=== PATIENT | female | born 1965 | race Caucasian/White ===

== ENCOUNTER 2017-08-06 20:32 | Emergency (ER) | payer SELFPAY ==
[2017-08-06 21:11] LABS: #Basophils 0.1 thou/uL (0.0-0.2); #Eosinphils 0.2 thou/uL (0.0-0.7); #Lymphocytes 2.4 thou/uL (1.20-3.40); #Monocytes 0.6 thou/uL (0.11-0.59); #Neutrophils 7.6 thou/uL (1.40-6.50); %Basophils 0.9 % (0.0-1.0); %Eosinophils 2.2 % (0.0-10.0); %Monocytes 5.7 % (0.0-10.0); Hematocrit 44.7 % (36.0-47.0); Mean Platelet Volume 7.6 fL (7.4-10.4); Red Blood Cell (RBC) Count 4.55 mill/uL (4.20-5.40)
[2017-08-06 21:30] LABS: ALT (SGPT) 11 U/L (8-55); AST (SGOT) 13 U/L (5-34); Alkaline Phosphatase 111 U/L (40-150); Anion Gap 13 mmol/L (10-20); BUN (Urea Nitrogen) 11 mg/dL (9.8-20.1); Bilirubin, Total 0.5 mg/dL (0.2-1.2); Calc. Creatinine Clearance 0 mL/min (70-130); Calcium 9.7 mg/dL (7.8-10.44); Carbon Dioxide 27 mmol/L (22-29); Chloride 106 mmol/L (98-107); Estimated GFR-MDRD 71; Globulin 3.6 g/dL (2.4-3.5); Lipase 35 U/L (8-78); Protein, Total 7.5 g/dL (6.0-8.3)
[2017-08-06 21:45] LABS: Bilirubin Negative (Negative); Blood, Urine Negative (Negative); Glucose, Urine (Dipstick) Negative (Negative); Ketone, Urine Negative (Negative); Nitrite Negative (Negative); Protein, Urine (Dipstick) Negative (Neg-Trace)
--- NOTE | 2017-08-06 23:27 | CT ---
CT ABDOMEN AND PELVIS WITHOUT CONTRAST: 08/06/17 HISTORY: Flank pain, lower back pain, cramping in the lower abdomen. FINDINGS: Absence of oral and IV contrast reduces the sensitivity of the exam particularly for evaluation of s olid organs and bowel. The lung bases are unremarkable. The patient is post cholecystectomy and appendectomy. No free air o r free fluid is seen in the abdomen or pelvis. There is a punctate calculus in the right kidney. No calculi is seen in the left kidney, either uret er, or the urinary bladder. No hydroureteronephrosis is seen on either side. The uterus is present. There is colonic diverticulosis. No pericolonic inflammatory changes are seen to suggest diverticulitis. There is no evidence of aneurysmal dilatation of the abdominal aorta. A fat containing umbilical hernia is present. There are degenerative changes in the spine. IMPRESSION: 1. Tiny nonobstructing right renal calculus. 2. Colonic diverticulosis. 3. Fat containing umbilical hernia. POS: [facility]
== END 2017-08-07 00:33 | disposition home or self-care (01) ==
LOC: ERS 20:32
DX: N20.0 Calculus of kidney (principal); J45.909 Unspecified asthma, uncomplicated; E66.9 Obesity, unspecified
CPT/HCPCS: 36415; 74176; 80053; 81003; 82150; 83690; 85025

== ENCOUNTER 2018-05-27 16:21 | Emergency (ER) | payer SELFPAY ==
[2018-05-27] MEDS ORDERED: Ketorolac Tromethamine 30 MG/ML VIAL ONE (17:38)
--- NOTE | 2018-05-27 17:50 | RAD ---
RADIOGRAPHS OF THE RIGHT KNEE FOUR VIEWS: 05/27/18 INDICATION: Right knee injury after fall. IMPRESSION: There is mild to moderate osteoarthrosis of the right knee. No acute fracture or subluxation is evide nt. Enthesopathic changes seen off the anterior patella. The degree of osteoarthrosis has progressed since the 05/16/14 radiographic exam. POS: [facility]
--- NOTE | 2018-05-27 18:26 | ULT ---
DOPPLER VENOUS ULTRASOUND OF THE RIGHT LOWER EXTREMITY: 05/27/18 INDICATION: Right knee pain. TECHNIQUE: Teague scale, color doppler and vascular duplex with spectral analysis was performed of the deep venous structures of the right lower extremity. Common femoral vein, superficial femoral vein, popliteal ve in, posterior tibial vein, proximal greater saphenous and profunda veins were assessed. FINDINGS: Normal compression, flow, and augmentation seen within the deep venous structures of the right lower extremity. IMPRESSION: No evidence of DVT to the right lower extremity. POS: [facility]
== END 2018-05-27 18:50 | disposition home or self-care (01) ==
LOC: ERS 16:21
DX: S83.91XA Sprain of unspecified site of right knee, initial encounter (principal); J45.909 Unspecified asthma, uncomplicated; X58.XXXA Exposure to other specified factors, initial encounter; Y92.832 Beach as the place of occurrence of the external cause
CPT/HCPCS: 96372; J1885

== ENCOUNTER 2018-07-22 10:36 | Outpatient (CLI) | payer OTHER, SELFPAY ==
--- NOTE | 2018-07-22 13:22 | ULT ---
PELVIC ULTRASOUND: Date: 07/22/18 HISTORY: Postmenopausal bleeding. COMPARISON: None. TECHNIQUE: Transabdominal and endovaginal imaging of the pelvis is performed. Ovaries are interrogated with Teague scale imaging. FINDINGS: Uterus is identified, without discrete myometrial mass. Uterus measures 7.9 x 4.8 x 4.4 cm. Suboptimal evaluation of the endometrium. Both ovaries have a normal echotexture. Right ovary measures 2.9 x 2.0 x 1.3 cm. Left ovary measures 1.9 x 1.5 x 2.4 cm. IMPRESSION: Suboptimal evaluation of the endometrium. Given the patient's history of postmenopausal bleeding, pel anna MRI is recommended. POS: [facility]
== END 2018-07-22 10:37 | disposition home or self-care (01) ==
LOC: BICULT 10:36
PROVIDERS: ATTEND Family Medicine
DX: N95.0 Postmenopausal bleeding (principal)
CPT/HCPCS: 76856

== ENCOUNTER 2019-01-05 20:39 | Emergency (ER) | payer SELFPAY ==
[~2019-01-05 20:39] MED LIST: ISOVUE-370 76%-LOCM 1 ML ONE
[2019-01-05 21:30] LABS: #Basophils 0.1 thou/uL (0.0-0.2); #Eosinphils 0.2 thou/uL (0.0-0.7); #Lymphocytes 2.5 thou/uL (1.20-3.40); #Monocytes 0.6 thou/uL (0.11-0.59); %Basophils 0.8 % (0.0-1.0); %Eosinophils 2.4 % (0.0-10.0); %Lymphocytes 23.9 % (21.0-51.0); %Monocytes 6.1 % (0.0-10.0); %Neutrophils 66.8 % (42.0-75.0); Hemoglobin 14.6 g/dL (12.0-16.0); Mean Corpuscular HGB CONC 32.1 g/dL (32.0-36.0); Mean Corpuscular Hemoglobin 30.9 pg (27.0-31.0); Mean Corpuscular Volume 96.4 fL (78.0-98.0); Mean Platelet Volume 8.1 fL (7.4-10.4); Platelet Count 286 thou/uL (130-400); RBC Distribution Width 12.1 % (11.5-14.5); Red Blood Cell (RBC) Count 4.73 mill/uL (4.20-5.40); White Blood Cell (WBC) Count 10.5 thou/uL (4.8-10.8)
[2019-01-05 21:39] LABS: Bilirubin Negative (Negative); Blood, Urine Large (Negative); Clarity CLOUDY (Clear); Glucose, Urine (Dipstick) Negative (Negative); Leukocyte Negative (Negative); Nitrite Negative (Negative); Protein, Urine (Dipstick) Trace mg/dL (Neg-Trace); Specific Gravity, Urine 1.024 (1.002-1.036); pH, Urine 6.5 (5.0-9.0)
[2019-01-05 21:41] LABS: Bacteria/HPF 1+ HPF (None Seen); Hyaline Casts/LPF 4-6 HYALINE CAST LPF (0-3 Hyaline); Pathc Cast-AUWi Flag 0.95 (0-2.49); RBC/HPF GREATER THAN 50-TNTC HPF (0-3)
[2019-01-05 21:48] LABS: ALT (SGPT) 12 U/L (8-55); AST (SGOT) 15 U/L (5-34); Albumin 4.1 g/dL (3.5-5.0); Alkaline Phosphatase 108 U/L (40-150); Anion Gap 14 mmol/L (10-20); BUN (Urea Nitrogen) 11 mg/dL (9.8-20.1); Bilirubin, Total 0.7 mg/dL (0.2-1.2); Calc. Creatinine Clearance 0 mL/min (70-130); Calcium 9.9 mg/dL (7.8-10.44); Carbon Dioxide 26 mmol/L (22-29); Chloride 105 mmol/L (98-107); Estimated GFR-MDRD 83; Globulin 3.5 g/dL (2.4-3.5); Glucose 142 mg/dL (70-105); Protein, Total 7.6 g/dL (6.0-8.3); Sodium 141 mmol/L (136-145)
[2019-01-05] MEDS ORDERED: Ketorolac Tromethamine 30 MG/ML VIAL ONE (22:28)
--- NOTE | 2019-01-05 23:41 | ULT ---
ULTRASOUND PELVIC TRANSVAGINAL WITH DOPPLER: 01/05/19 HISTORY: Pelvic pain. COMPARISON: Pelvic ultrasound from 07/22/18. FINDINGS: The uterus measures 9.8 x 4.9 x 4.7 cm. Endometrial thickness measures 1 cm. Right ovary measures 3.5 x 1.8 x 2.5 cm. Adequate vascular flow. No free fluid. Left ovary is not visualized. IMPRESSION: 1. Abnormally thickened endometrium in postmenopausal patient. It may reflect hyperplasia versus less likely a mass or polyp. Direct visualization and biopsy recommended if not already performed. 2. Nonvisualization of the left ovary with normal flow to the right ovary. POS: [facility]
[2019-01-06] MEDS ORDERED: Ondansetron PF 4 MG/2 ML Vial ONE (00:01)
--- NOTE | 2019-01-06 07:59 | CT ---
PRELIMINARY REPORT/[facility]/EMERGENCY AFTER HOURS PROCEDURE: EXAM: CT Abdomen and Pelvis With Contrast EXAM DATE/TIME: 01/06/2019 12:12 AM CLINICAL HISTORY: 53 years old, female; Pain; Abdominal pain; Acute; Patient HX: F53 reports to ed C/O rlq pain. PT rep orts associated nausea, MIRAMONTES, vaginal spotting for three weeks, back pain, and fever. PT reports sharp abdominal spasms, that have worsened. PT reports vaginal bleeding when standing during work, then sto ps when sitting; PT report blood has alternated between bright red and brown. PT reports she has nevjose luis r had a regular mp. PT reports it feels like "privates" are dropping. TECHNIQUE: Imaging protocol: Axial computed tomography images of the abdomen and pelvis with intravenous contras t. Coronal reformatted images were created and reviewed. COMPARISON: No relevant prior studies available. FINDINGS: Lower thorax: No acute findings. ABDOMEN: Liver: Hepatomegaly measures 18 cm. Gallbladder and bile ducts: Previous cholecystectomy. Pancreas: Normal. No ductal dilation. Spleen: Normal. No splenomegaly. Adrenals: Normal. No mass. Kidneys and ureters: Normal. No hydronephrosis. Stomach and bowel: Diverticulosis without diverticulitis. Appendix: No evidence of appendicitis. PELVIS: Bladder: Unremarkable as visualized. Reproductive: Unremarkable as visualized. ABDOMEN and PELVIS: Intraperitoneal space: Normal. No free air. No significant fluid collection. Bones/joints: There are degenerative changes involving the spine. Soft tissues: Moderate to large fat containing umbilical hernia. Vasculature: Multiple phleboliths within the pelvis. Lymph nodes: Normal. No enlarged lymph nodes. IMPRESSION: No acute abnormality. Thank you for allowing us to participate in the care of your patient. Dictated and Authenticated by: Masood Donohue MD 01/06/2019 1:02 AM Central Time ([place] & [place]) FINAL REPORT CT ABDOMEN AND PELVIS: Date: 01/06/19 HISTORY: Right lower quadrant pain/acute abdominal pain. FINDINGS: This report is in agreement with the preliminary report given by Samantha. Imaged lung bases are unremark able with no free intraperitoneal air or fluid seen. There is a fat-containing umbilical hernia measu ring up to 7.0 cm in transverse dimension. Cholecystectomy clips are present. Liver and spleen are un remarkable. There are varices noted in the left upper quadrant of uncertain etiology, most prominent in the region of the body of the spleen. This could be related to stenosis and/or occlusion of the sp lenic vein distally. Adrenal glands and kidneys demonstrate no acute findings. No evidence for bowel, inflammatory change, or bowel obstruction. Appendix is grossly unremarkable. Vascular structures of abdomen and pelvis demonstrate no acute find ings. No lymphadenopathy is noted within the abdomen or pelvis. The osseous structures demonstrate multilevel lower lumbar spine facet hypertrophic change with no wo rrisome lytic or blastic bone lesions. IMPRESSION: No acute findings are noted. Numerous incidental findings are seen, as detailed above. POS: [facility]
== END 2019-01-06 01:33 | disposition home or self-care (01) ==
LOC: ERS 20:39
DX: N93.9 Abnormal uterine and vaginal bleeding, unspecified (principal); E66.9 Obesity, unspecified; J45.909 Unspecified asthma, uncomplicated
CPT/HCPCS: 36415; 74177; 76856; 80053; 81003; 81015; 85025; 96374; 96375; J1885; J2405; Q9966

== ENCOUNTER 2019-03-17 22:22 | Emergency (ER) | payer SELFPAY ==
--- NOTE | 2019-03-17 23:08 | RAD ---
EXAM: 2 view chest: INDICATIONS: Chest pain COMPARISON: 12/11/2016 FINDINGS: Mild cardiomegaly. Mild vascular engorgement. No infiltrate. No significant change from frandy or exam. IMPRESSION: No acute finding
--- NOTE | 2019-03-17 23:13 | CT ---
CT HEAD WITHOUT CONTRAST: 03/17/19 Multiple axial tomograms obtained through the head without IV enhancement. INDICATIONS: Headache. Ventricles have normal size and position. There is no evidence of intracranial mass or hemorrhage. No evidence of infarct. IMPRESSION: No acute abnormality. POS: [facility]
[2019-03-17 23:27] LABS: #Eosinphils 0.3 thou/uL (0.0-0.7); #Lymphocytes 2.4 thou/uL (1.20-3.40); #Monocytes 0.6 thou/uL (0.11-0.59); #Neutrophils 7.7 thou/uL (1.40-6.50); %Basophils 0.4 % (0.0-1.0); %Eosinophils 2.4 % (0.0-10.0); %Lymphocytes 21.6 % (21.0-51.0); %Monocytes 5.8 % (0.0-10.0); %Neutrophils 69.8 % (42.0-75.0); Hemoglobin 13.1 g/dL (12.0-16.0); Mean Corpuscular HGB CONC 33.9 g/dL (32.0-36.0); Mean Corpuscular Hemoglobin 32.1 pg (27.0-31.0); Mean Corpuscular Volume 94.8 fL (78.0-98.0); Mean Platelet Volume 8.2 fL (7.4-10.4); Platelet Count 259 thou/uL (130-400); RBC Distribution Width 12.4 % (11.5-14.5); Red Blood Cell (RBC) Count 4.07 mill/uL (4.20-5.40)
[2019-03-17 23:38] LABS: BHCG - Serum Negative (NEGATIVE); Pregs Control Background? CLEAR/WHITE (CLR/WHITE); Pregs Control Bar Appear? YES (CONTROL BAR)
[2019-03-17 23:44] LABS: ALT (SGPT) 12 U/L (8-55); AST (SGOT) 14 U/L (5-34); Albumin 3.7 g/dL (3.5-5.0); Alkaline Phosphatase 113 U/L (40-150); Anion Gap 14 mmol/L (10-20); BUN (Urea Nitrogen) 13 mg/dL (9.8-20.1); Bilirubin, Total 0.6 mg/dL (0.2-1.2); Calc. Creatinine Clearance 0 mL/min (70-130); Calcium 9.3 mg/dL (7.8-10.44); Carbon Dioxide 26 mmol/L (22-29); Chloride 102 mmol/L (98-107); Estimated GFR-MDRD 83; Globulin 3.2 g/dL (2.4-3.5); Glucose 284 mg/dL (70-105); Potassium 3.8 mmol/L (3.5-5.1); Protein, Total 6.9 g/dL (6.0-8.3); Sodium 138 mmol/L (136-145)
[2019-03-17] MEDS ORDERED: hydrALAZINE 10 MG TAB PO SCH (23:45)
[2019-03-18 00:30] LABS: Bilirubin Negative (Negative); Blood, Urine Negative (Negative); Clarity CLEAR (Clear); Glucose, Urine (Dipstick) 250 mg/dL (Negative); Leukocyte Negative (Negative); Nitrite Negative (Negative); Protein, Urine (Dipstick) Negative (Neg-Trace); Specific Gravity, Urine 1.024 (1.002-1.036); pH, Urine 6.5 (5.0-9.0)
== END 2019-03-18 01:23 | disposition home or self-care (01) ==
LOC: ERS 22:22
DX: J20.9 Acute bronchitis, unspecified (principal); E11.65 Type 2 diabetes mellitus with hyperglycemia; E66.9 Obesity, unspecified; J45.909 Unspecified asthma, uncomplicated; R03.0 Elevated blood-pressure reading, without diagnosis of hypertension
CPT/HCPCS: 36415; 70450; 71046; 80053; 81003; 84484; 84703; 85025

== ENCOUNTER 2020-11-02 05:31 | Inpatient (IN) | payer SELFPAY ==
[2020-11-02] MEDS ORDERED: Lorazepam 2 MG/ML VIAL ONE (06:10)
[2020-11-02] MEDS ORDERED: Dexamethasone 10 MG/ML VIAL ONE (06:10)
[2020-11-02 06:40] LABS: #Lymphocytes 1.4 thou/uL (1.20-3.40); #Monocytes 0.4 thou/uL (0.11-0.59); #Neutrophils 5.5 thou/uL (1.40-6.50); %Basophils 0.6 % (0.0-1.0); %Eosinophils 0.2 % (0.0-10.0); %Lymphocytes 18.7 % (21.0-51.0); %Monocytes 5.9 % (0.0-10.0); %Neutrophils 74.7 % (42.0-75.0); Hemoglobin 12.7 g/dL (12.0-16.0); Mean Corpuscular HGB CONC 30.4 g/dL (32.0-36.0); Mean Corpuscular Volume 95.6 fL (78.0-98.0); Mean Platelet Volume 8.1 fL (7.4-10.4); Platelet Count 229 thou/uL (130-400); RBC Distribution Width 12.1 % (11.5-14.5); Red Blood Cell (RBC) Count 4.36 mill/uL (4.20-5.40); White Blood Cell (WBC) Count 7.4 thou/uL (4.8-10.8)
[2020-11-02 06:50] LABS: ALT (SGPT) 11 U/L (8-55); AST (SGOT) 19 U/L (5-34); Albumin 3.1 g/dL (3.5-5.0); Alkaline Phosphatase 67 U/L (40-110); Anion Gap 14 mmol/L (10-20); BUN (Urea Nitrogen) 8 mg/dL (9.8-20.1); Bilirubin, Total 0.4 mg/dL (0.2-1.2); Calc. Creatinine Clearance 0 mL/min (70-130); Calcium 8.2 mg/dL (7.8-10.44); Carbon Dioxide 28 mmol/L (22-29); Chloride 100 mmol/L (98-107); Globulin 3.4 g/dL (2.4-3.5); Glucose 255 mg/dL (70-105); Potassium 3.3 mmol/L (3.5-5.1); Protein, Total 6.5 g/dL (6.0-8.3); Sodium 139 mmol/L (136-145)
[2020-11-02 07:00] LABS: Bacteria/HPF None Seen HPF (None Seen); Bilirubin Negative (Negative); Blood, Urine 2+ (Negative); Clarity Clear (Clear); Glucose, Urine (Dipstick) 30 mg/dL (Negative); Ketone, Urine Negative (Negative); Leukocyte Negative Leu/uL (Negative); Nitrite Negative (Negative); Protein, Urine (Dipstick) 70 mg/dL (Neg-Trace); RBC/HPF Greater than 50 HPF (0-3); Squamous Epithelial 0-3 HPF (0-3)
[2020-11-02 07:01] LABS: Specific Gravity, Urine 1.043 (1.002-1.036)
[2020-11-02] MEDS ORDERED: Acetaminophen 650 MG Suppository PR PRN (07:49)
[2020-11-02] MEDS ORDERED: Loperamide HCl 2 MG CAP PO PRN (07:49)
--- NOTE | 2020-11-02 07:52 | RAD ---
Exam: Chest one view HISTORY:Dyspnea. COVID positive patient Comparison: 03/17/2019 FINDINGS: Cardiac silhouette:Cardiomegaly Aorta: Unremarkable Pulmonary vessels: Normal Costophrenic angles: Small bilateral effusions LUNGS: Multi lobar interstitial and alveolar opacities. Pneumothorax: None Osseous abnormalities: None IMPRESSION: 1. Possible congestive heart failure. Superimposed multi lobar COVID pneumonia cannot be excluded.
[2020-11-02] MEDS ORDERED: Potassium Chloride 20 MEQ TAB PO SCH (08:00)
[2020-11-02] MEDS ORDERED: Albuterol 200 PUFF (6.7GM INHALER) INH PRN (08:50)
[2020-11-02 08:55] VITALS: BMI 56.6
[2020-11-02] MEDS ORDERED: Dextrose 5% in Water 1,000 ML IV PRN (08:56)
[2020-11-02] MEDS ORDERED: Dextrose 50% Abboject 50 ML SYRINGE SLOW IVP PRN (08:56)
[2020-11-02] MEDS ORDERED: cefTRIAXone\\ROCEPHIN 1 GM in Sodium Chloride 0.9% 100 ML IVPB SCH ×2 (09:00→10:30)
[2020-11-02] MEDS ORDERED: REMDESIVIR (EUA) 200 MG in Sodium Chloride 0.9% 250 ML 210 ML IV SCH (09:00)
--- NOTE | 2020-11-02 09:27 | PDOC.HHP ---
Hospitalist HPI - History of Present Illness SOB History of Present Illness: Ms. Owen is a 55-year-old female with a past medical history of hypertension, obesity, type 2 diabetes mellitus, asthma who presented to the emergency room for shortness of breath. Patient reports that she was diagnosed with Covid approximately 1 week ago and her symptoms began with myalgias, cough progressing with fevers, and now shortness of breath. Patient reports that she was significantly short of breath with her O2 saturation in the 80s which prompted her to do a virtual care visit at [facility]. She was prescribed a dose of dexamethasone and advised to present to the emergency room, however she declined at that time. This morning however patient was even more short of breath and had difficulty walking around her home due to weakness and found her O2 saturation was at 70%. Patient denies chest pain, palpitations. Denies abdominal pain, but endorses nausea and diarrhea. She also reports dysuria and feels as though she might have a UTI. In emergency room initial vital signs 136/82, 79, 22, 98.6, 70% on room air. Improved to 94% on 3 L nasal cannula. WBC 7.4, H/H 12.7/41.7. BUN/CR 8/0.67. Sodium 139, potassium 3.3. Troponin 0 0.010. Chest x-ray with severe multifocal groundglass opacities consistent with COVID-19 pneumonia. UA grossly positive. Patient received dexamethasone in the emergency room and was admitted to hospitalist service for further management of her COVID-19 pneumonia. Hospitalist ROS - Review of Systems Constitutional: reports: fever, chills, sweats, weakness, malaise Eyes: denies: pain, vision change, conjunctivae inflammation, eyelid inflammation, redness, other ENT: reports: throat pain. denies: ear pain, ear discharge, nose pain, nose discharge, nose congestion, mouth pain, mouth swelling, throat swelling, other Respiratory: reports: cough, shortness of breath, SOB with excertion. denies: dry, hemoptysis, pleuritic pain, sputum, wheezing, other Cardiovascular: denies: chest pain, palpitations, orthopnea, paroxysmal noc. dyspnea, edema, light headedness, other Gastrointestinal: reports: nausea, diarrhea. denies: vomiting, abdominal pain, constipation, melena, hematochezia, other Genitourinary: reports: dysuria, hematuria. denies: frequency, incontinence, retention, other Musculoskeletal: denies: neck pain, shoulder pain, arm pain, back pain, hand pain, leg pain, foot pain, other Skin: denies: rash, lesions, maverick, bruising, other Neurological: denies: weakness, numbness, incoordination, change in speech, confusion, seizures, other - Medication Medications: Patient not currently on any home medications since she had a lapse in her insurance coverage. Patient reports that she was taking Metformin for her diabetes and a blood pressure pill which she cannot remember the name of. No known drug allergies Hospitalist History - Past Medical History Other Medical History: Past medical history seen for Obesity Type 2 diabetes mellitus Hypertension - Past Surgical History Other Surgical History: Past surgical history includes Appendectomy Cholecystectomy Tonsillectomy Tubal ligation I&D of thigh abscess - Family History Other Family History: No pertinent family history - Social History Smoking Status: Never smoker Alcohol: reports: None Drugs: reports: none Living Situation: With Family Activity level: independent ambulation - Exam General Appearance: NAD, awake alert, ill appearing Eye: PERRL, anicteric sclera ENT: normocephalic atraumatic, no oropharyngeal lesions, moist mucosa Neck: supple, symmetric, no JVD, no thyromegaly, no lymphadenopathy, no carotid bruit Heart: RRR, no murmur, no gallops, no rubs, normal peripheral pulses Respiratory - other findings: Rales throughout, faint wheezes Gastrointestinal: soft, non-tender, non-distended, normal bowel sounds, no palpable masses, no hepatomegaly, no splenomegaly, no bruit Extremities: no cyanosis, no clubbing, no edema Skin: normal turgor, no lesions, no rashes Neurological: cranial nerve grossly intact, normal sensation to touch, no weakness, no focal deficits, no new deficit Musculoskeletal: normal tone, normal strength, no muscle wasting Psychiatric: normal affect, normal behavior, A&O x 3 Hospitalist Results - Labs Result Diagrams: 11/02/20 06:16 11/02/20 06:16 Lab results: WBC 7.4 thou/uL (4.8-10.8) 11/02/20 06:16 Hgb 12.7 g/dL (12.0-16.0) 11/02/20 06:16 Hct 41.7 % (36.0-47.0) 11/02/20 06:16 MCV 95.6 fL (78.0-98.0) 11/02/20 06:16 Plt Count 229 thou/uL (130-400) 11/02/20 06:16 Neutrophils % 74.7 % (42.0-75.0) 11/02/20 06:16 ESR Westergren 85 mm/hr (Less than 30) H 11/02/20 06:16 Sodium 139 mmol/L (136-145) 11/02/20 06:16 Potassium 3.3 mmol/L (3.5-5.1) L 11/02/20 06:16 Chloride 100 mmol/L (98-107) 11/02/20 06:16 Carbon Dioxide 28 mmol/L (22-29) 11/02/20 06:16 BUN 8 mg/dL (9.8-20.1) L 11/02/20 06:16 Creatinine 0.67 mg/dL (0.6-1.1) 11/02/20 06:16 Glucose 255 mg/dL (70-105) H 11/02/20 06:16 Calcium 8.2 mg/dL (7.8-10.44) 11/02/20 06:16 Total Bilirubin 0.4 mg/dL (0.2-1.2) 11/02/20 06:16 AST 19 U/L (5-34) 11/02/20 06:16 ALT 11 U/L (8-55) 11/02/20 06:16 Alkaline Phosphatase 67 U/L (40-110) 11/02/20 06:16 Troponin I Less than 0.010 ng/mL (< 0.028) 11/02/20 06:16 C-Reactive Protein 20.46 mg/dL (= or < 0.5) H 11/02/20 06:16 Serum Total Protein 6.5 g/dL (6.0-8.3) 11/02/20 06:16 Albumin 3.1 g/dL (3.5-5.0) L 11/02/20 06:16 Urine Ketones Negative mg/dL (Negative) 11/02/20 06:30 Urine Blood 2+ (Negative) A 11/02/20 06:30 Urine Nitrite Negative (Negative) 11/02/20 06:30 Ur Leukocyte Esterase Negative Mehreen/uL (Negative) 11/02/20 06:30 Urine RBC Greater than 50 HPF (0-3) A 11/02/20 06:30 Urine WBC 7-10 HPF (0-3) A 11/02/20 06:30 Ur Squamous Epith Cells 0-3 HPF (0-3) 11/02/20 06:30 Urine Bacteria None Seen HPF (None Seen) 11/02/20 06:30 Hospitalist H&P A/P - Plan Plan: COVID-19 pneumonia 55-year-old female with past medical history of type 2 diabetes mellitus, obesity, hypertension presents with worsening shortness of breath and Covid positive status. Symptoms began approximately 1 week ago with cough fevers myalgias and progressive shortness of breath. Patient was seen previously for rachana Galav[facility], [facility] and was started on dexamethasone day prior to admission, however O2 saturations continuing to drop and patient was 70% on room air. Now saturating well at 94% on 3 L nasal cannula. White blood cell count 7.4. Troponin 0 0.010. Chest x-ray shows severe multifocal ground glass opacities consistent with COVID-19 pneumonia. Based off of patient's comorbidities, likely baseline obesity hypoventilation syndrome, uncontrolled diabetes, and significant thickened changes on chest x-ray expect patient to have a difficult course. Will obtain baseline inflammatory markers, start convalescent plasma, continue dexamethasone, and see if patient is candidate for remdesivir. Plan -Decadron, will see patient is candidate for remdesivir -Ceftriaxone, azithromycin -Supplemental oxygen -Tylenol, Robitussin -Convalescent plasma -We will obtain baseline inflammatory markers Acute hypoxic respiratory failure Patient with acute hypoxic respiratory failure secondary to moderate to severe COVID-19 pneumonia. Patient with new oxygen requirement now on 3 L of oxygen nasal cannula to maintain O2 sat. We will continue supplemental oxygen and cl osely monitor respiratory status. Treatment as above. Plan -Supplemental oxygen -Treatment as above -Closely monitor respiratory status Urinary tract infection Patient reports dysuria, foul-smelling urine, and hematuria over the past few days. UA grossly positive. Will start patient on ceftriaxone and continue to monitor. Plan IV ceftriaxone Follow urine cultures Type 2 diabetes mellitus History of type 2 diabetes mellitus. Patient reports she was formally on Metformin but stopped due to unable to tolerate diarrhea side effects, and lapse in her insurance. Patient not currently on any diabetes medication. Will obtain hemoglobin A1c, place patient on insulin sliding scale and consider restarting patient on oral agent. Plan Hemoglobin A1c Insulin sliding scale ACHS glucose checks Carb consistent diet Hypertension History of hypertension. Patient not on any hypertensive medications currently since/of the left and insurance. Will make as needed hydralazine available and restart home medications as needed. Patient normotensive at this time. DVT prophylaxisLovenox Full code Case discussed with attending physician, Dr. Britt
[2020-11-02] MEDS: Acetaminophen 325 MG TAB PO PRN ×2 (09:59→20:31)
[2020-11-02] MEDS: Dexamethasone 4 MG TAB PO SCH (09:59)
[2020-11-02] MEDS: Enoxaparin Sodium 40 MG/0.4 ML SYRINGE SC SCH ×2 (10:00→20:30)
[2020-11-02] MEDS ORDERED: cefTRIAXone\\ROCEPHIN 2 GM in Sodium Chloride 0.9% 100 ML IVPB SCH (10:19)
[2020-11-02] MEDS: Metoclopramide HCl 10 MG/2 ML VIAL IVP PRN ×2 (11:34→21:14)
[2020-11-02] MEDS: Guaifenesin DM 100-10/5 ML UDCUP PO PRN ×2 (12:49→21:14)
[2020-11-02] MEDS: HumaLOG 300 UNITS/3 ML VIAL SC PRN ×3 (13:07→20:40)
[2020-11-02] MEDS: Loperamide HCl 2 MG CAP PO PRN (20:40)
[2020-11-03] MEDS: Guaifenesin DM 100-10/5 ML UDCUP PO PRN ×3 (05:05→20:33)
[2020-11-03] MEDS: Acetaminophen 325 MG TAB PO PRN ×2 (05:06→20:50)
[2020-11-03] MEDS: HumaLOG 300 UNITS/3 ML VIAL SC PRN ×4 (05:23→20:31)
[2020-11-03] MEDS: Metoclopramide HCl 10 MG/2 ML VIAL IVP PRN (05:38)
[2020-11-03 07:16] LABS: Anion Gap 18 mmol/L (10-20); BUN (Urea Nitrogen) 12 mg/dL (9.8-20.1); Calc. Creatinine Clearance 192 mL/min (70-130); Calcium 8.3 mg/dL (7.8-10.44); Carbon Dioxide 22 mmol/L (22-29); Chloride 102 mmol/L (98-107); Glucose 277 mg/dL (70-105); Potassium 4.1 mmol/L (3.5-5.1); Sodium 138 mmol/L (136-145)
[2020-11-03] MEDS: cefTRIAXone\\ROCEPHIN 2 GM in Sodium Chloride 0.9% 100 ML IVPB SCH (08:11)
[2020-11-03] MEDS: Dexamethasone 4 MG TAB PO SCH (08:11)
[2020-11-03] MEDS: Enoxaparin Sodium 40 MG/0.4 ML SYRINGE SC SCH ×2 (08:12→20:31)
--- NOTE | 2020-11-03 08:19 | PDOC.HOSPP ---
- Subjective Encounter Date: 11/03/20 Encounter Time: 08:17 Subjective: Patient sitting up in chair with oxygen on via NC at 4L/min. SPO2 reading 99- 100%. On room air, patient titrated down to 95-96%. Patient states she gets shortness of breath with exertion, position changes or prolonged movement. - Objective Vital Signs & Weight: Vital Signs (12 hours) Temp Pulse Resp BP Pulse Ox 11/03/20 04:00 98.0 F 64 18 124/77 92 L 11/03/20 00:00 98.4 F 65 20 129/82 97 Weight Weight 290 lb I&O: 11/02/20 11/03/20 11/04/20 06:59 06:59 06:59 Intake Total 600 Balance 600 Result Diagrams: 11/03/20 11:53 11/03/20 06:30 Additional Labs: Accuchecks 11/03/20 11/02/20 11/02/20 05:15 20:18 16:07 POC Glucose 234 H 335 H 364 H 11/02/20 11:39 POC Glucose 338 H Hospitalist ROS - Review of Systems Constitutional: reports: weakness Respiratory: reports: cough, SOB with excertion, wheezing Cardiovascular: denies: chest pain, palpitations, orthopnea, paroxysmal noc. dyspnea, edema, light headedness, other Gastrointestinal: reports: nausea. denies: vomiting, abdominal pain Neurological: denies: weakness, numbness, incoordination, change in speech, confusion, seizures, other - Medication Medications: Active Medications Generic Name Dose Route Start Last Admin Trade Name Freq PRN Reason Stop Dose Admin Acetaminophen 650 mg 11/02/20 07:49 11/03/20 05:06 Acetaminophen 325 Mg Tab PO 650 mg Q4H PRN Administration Headache/Fever/Mild Pain (1-3) Dexamethasone 6 mg 11/02/20 08:00 11/03/20 08:11 Dexamethasone 4 Mg Tab PO 6 mg QAM-WM MARTHA Administration Enoxaparin Sodium 40 mg 11/02/20 09:00 11/03/20 08:12 Enoxaparin Sodium 40 Mg/0.4 Ml Syringe SC 40 mg 0900,2100 MARTHA Administration Guaifenesin/Dextromethorphan 15 ml 11/02/20 07:49 11/03/20 05:05 Guaifenesin Dm 100-10/5 Ml Udcup PO 15 ml Q4H PRN Administration Cough Ceftriaxone Sodium 2 gm/ 100 mls @ 200 mls/hr 11/03/20 09:00 11/03/20 08:11 Sodium Chloride IVPB 100 mls Q24HR MARTHA Administration Insulin Human Lispro 0 units 11/02/20 08:56 11/03/20 05:23 Humalog 300 Units/3 Ml Vial SC 3 unit .MILD SLIDING SCALE PRN Administration Mild Correctional Scale Insulin Human Lispro 0 units 11/02/20 08:56 11/02/20 20:40 Humalog 300 Units/3 Ml Vial SC 4 unit .BEDTIME SLIDING SC PRN Administration Bedtime Correctional Scale Loperamide HCl 2 mg 11/02/20 07:49 11/02/20 20:40 Loperamide Hcl 2 Mg Cap PO 2 mg PRN PRN Administration Diarrhea/Loose Stools Metoclopramide HCl 10 mg 11/02/20 10:25 11/03/20 05:38 Metoclopramide Hcl 10 Mg/2 Ml Vial IVP 10 mg Q8H PRN Administration Nausea/Vomiting - Exam General Appearance: NAD, awake alert Heart: RRR, no murmur, no gallops, no rubs, normal peripheral pulses Respiratory: CTAB, no wheezes, no rales, no ronchi, normal chest expansion, no tachypnea, normal percussion Gastrointestinal: soft, non-tender, non-distended, normal bowel sounds, no palpable masses, no hepatomegaly, no splenomegaly, no bruit Skin: normal turgor, no lesions, no rashes Neurological: cranial nerve grossly intact, normal sensation to touch, no weakness, no focal deficits, no new deficit Musculoskeletal: normal tone, normal strength, no muscle wasting Psychiatric: normal affect, normal behavior, A&O x 3 Hosp A/P - Plan old records reviewed/req COVID-19 pneumonia 55-year-old female with past medical history of type 2 diabetes mellitus, obesity, hypertension presents with worsening shortness of breath and Covid positive status. Symptoms began approximately 1 week ago with cough fevers myalgias and progressive shortness of breath. Patient was seen previously for the [facility] and was started on dexamethasone day prior to admission, however O2 saturations continuing to drop and patient was 70% on room air. Now saturating well at 94% on 3 L nasal cannula. White blood cell count 7.4. Troponin 0 0.010. Chest x-ray shows severe multifocal ground glass opacities consistent with COVID-19 pneumonia. Based off of patient's comorbidities, likely baseline obesity hypoventilation syndrome, uncontrolled diabetes, and significant thickened changes on chest x-ray expect patient to have a difficult course. Will obtain baseline inflammatory markers, start convalescent plasma, continue dexamethasone, and start remdesivir. Plan -Decadron. -Remdesivir -Ceftriaxone, azithromycin -Supplemental oxygen -Tylenol, Robitussin -Convalescent plasma -We will obtain baseline inflammatory markers Acute hypoxic respiratory failure Patient with acute hypoxic respiratory failure secondary to moderate to severe COVID-19 pneumonia. Patient with new oxygen requirement now on 3 L of oxygen nasal cannula to maintain O2 sat. We will continue supplemental oxygen and closely monitor respiratory status. Treatment as above. Plan -Supplemental oxygen -Treatment as above -Closely monitor respiratory status Urinary tract infection Patient reports dysuria, foul-smelling urine, and hematuria over the past few days. UA grossly positive. Will start patient on ceftriaxone and continue to monitor. Plan IV ceftriaxone Follow urine cultures Type 2 diabetes mellitus History of type 2 diabetes mellitus. Patient reports she was formally on Metformin but stopped due to unable to tolerate diarrhea side effects, and lapse in her insurance. Patient not currently on any diabetes medication. Will obtain hemoglobin A1c, place patient on insulin sliding scale and consider restarting patient on oral agent. Plan Hemoglobin A1c Insulin sliding scale ACHS glucose checks Carb consistent diet Hypertension History of hypertension. Patient not on any hypertensive medications currently since/of the left and insurance. Will make as needed hydralazine available and restart home medications as needed. Patient normotensive at this time. DVT prophylaxisLovenox Full code
[2020-11-03] MEDS: REMDESIVIR (EUA) 100 MG in Sodium Chloride 0.9% 250 ML 230 ML IV SCH (10:46)
[2020-11-03 12:14] LABS: #Monocytes 0.5 thou/uL (0.11-0.59); #Neutrophils 10.7 thou/uL (1.40-6.50); %Lymphocytes 8.5 % (21.0-51.0); %Monocytes 4.3 % (0.0-10.0); %Neutrophils 87.3 % (42.0-75.0); Hemoglobin 13.8 g/dL (12.0-16.0); Mean Corpuscular HGB CONC 31.5 g/dL (32.0-36.0); Mean Corpuscular Hemoglobin 30.7 pg (27.0-31.0); Mean Corpuscular Volume 97.7 fL (78.0-98.0); Mean Platelet Volume 8.2 fL (7.4-10.4); Platelet Count 261 thou/uL (130-400); RBC Distribution Width 12.1 % (11.5-14.5); Red Blood Cell (RBC) Count 4.49 mill/uL (4.20-5.40); White Blood Cell (WBC) Count 12.3 thou/uL (4.8-10.8)
[2020-11-03] MEDS: Ketorolac Tromethamine 30 MG/ML VIAL IVP PRN ×2 (16:38→23:21)
[2020-11-03] MEDS ORDERED: Zolpidem Tartrate 5 MG TAB PO PRN (18:13)
[2020-11-03] MEDS: Melatonin 3 MG TAB PO PRN (20:31)
[2020-11-04] MEDS: HumaLOG 300 UNITS/3 ML VIAL SC PRN ×4 (06:05→20:23)
[2020-11-04] MEDS: Metoclopramide HCl 10 MG/2 ML VIAL IVP PRN (06:11)
[2020-11-04] MEDS: Enoxaparin Sodium 40 MG/0.4 ML SYRINGE SC SCH ×2 (09:32→20:18)
[2020-11-04] MEDS: Dexamethasone 4 MG TAB PO SCH (09:49)
[2020-11-04] MEDS: cefTRIAXone\\ROCEPHIN 2 GM in Sodium Chloride 0.9% 100 ML IVPB SCH (09:49)
--- NOTE | 2020-11-04 10:09 | PDOC.HOSPP ---
- Subjective Encounter Date: 11/04/20 Encounter Time: 10:05 Subjective: Patient sitting up in bedside chair watching TV and eating breakfast. Patient 98% SPO2 with oxygen on via NC at 4L/min. Patient states she gets shortness of breath with exertion, position changes or prolonged movement. Patient states Ambien didn't seem to help much last night. States she feels like Reglan isn't working well, still c/o nausea, discussed starting Zofran, patient agreed. Patient has vaginal bleeding present, states she has occasional breakthrough bleeding present over the last couple years. - Objective Vital Signs & Weight: Vital Signs (12 hours) Temp Pulse Resp BP Pulse Ox 11/04/20 08:21 98.3 F 50 L 20 135/71 91 L 11/04/20 04:31 98.3 F 50 L 20 119/73 93 L 11/03/20 23:56 98.6 F 57 L 20 141/52 H 95 Weight Weight 290 lb I&O: 11/03/20 11/04/20 11/05/20 06:59 06:59 06:59 Intake Total 600 Balance 600 Result Diagrams: 11/03/20 11:53 11/03/20 06:30 Additional Labs: Accuchecks 11/04/20 11/03/20 11/03/20 04:37 20:19 16:15 POC Glucose 252 H 312 H 313 H Hospitalist ROS - Review of Systems Constitutional: reports: weakness, malaise. denies: fever, chills, sweats Eyes: denies: pain, vision change, conjunctivae inflammation ENT: denies: ear pain, ear discharge, nose pain, nose discharge, nose congestion Respiratory: reports: cough, shortness of breath, SOB with excertion. denies: pleuritic pain, sputum Cardiovascular: denies: chest pain, palpitations, orthopnea, paroxysmal noc. dy spnea Gastrointestinal: denies: nausea, vomiting, abdominal pain Musculoskeletal: reports: back pain (due to coughing). denies: neck pain, shoulder pain, arm pain Neurological: denies: weakness, numbness, incoordination All other systems reviewed; all pertinent +/- noted in HPI/Subj - Medication Medications: Active Medications Generic Name Dose Route Start Last Admin Trade Name Freq PRN Reason Stop Dose Admin Acetaminophen 650 mg 11/02/20 07:49 11/03/20 20:50 Acetaminophen 325 Mg Tab PO 650 mg Q4H PRN Administration Headache/Fever/Mild Pain (1-3) Dexamethasone 6 mg 11/02/20 08:00 11/04/20 09:49 Dexamethasone 4 Mg Tab PO 6 mg QAM-WM MARTHA Administration Enoxaparin Sodium 40 mg 11/02/20 09:00 11/04/20 09:32 Enoxaparin Sodium 40 Mg/0.4 Ml Syringe SC 40 mg 0900,2100 MARTHA Administration Guaifenesin/Dextromethorphan 15 ml 11/02/20 07:49 11/03/20 20:33 Guaifenesin Dm 100-10/5 Ml Udcup PO 15 ml Q4H PRN Administration Cough Remdesivir 100 mg/ Sodium 250 mls @ 250 mls/hr 11/03/20 10:00 11/03/20 10:46 Chloride IV 11/06/20 10:59 250 mls 1000 MARTHA Administration Ceftriaxone Sodium 2 gm/ 100 mls @ 200 mls/hr 11/03/20 09:00 11/04/20 09:49 Sodium Chloride IVPB 100 mls Q24HR MARTHA Administration Insulin Human Lispro 0 units 11/02/20 08:56 11/04/20 06:05 Humalog 300 Units/3 Ml Vial SC 4 unit .MILD SLIDING SCALE PRN Administration Mild Correctional Scale Insulin Human Lispro 0 units 11/02/20 08:56 11/03/20 20:31 Humalog 300 Units/3 Ml Vial SC 4 unit .BEDTIME SLIDING SC PRN Administration Bedtime Correctional Scale Ketorolac Tromethamine 15 mg 11/02/20 10:20 11/03/20 23:21 Ketorolac Tromethamine 30 Mg/Ml Vial IVP 11/07/20 10:21 15 mg Q6H PRN Administration Pain Loperamide HCl 2 mg 11/02/20 07:49 11/02/20 20:40 Loperamide Hcl 2 Mg Cap PO 2 mg PRN PRN Administration Diarrhea/Loose Stools Melatonin 3 mg 11/03/20 17:56 11/03/20 20:31 Melatonin 3 Mg Tab PO 3 mg HS PRN Administration Insomnia - Exam General Appearance: NAD, awake alert Eye: PERRL, anicteric sclera ENT: normocephalic atraumatic, no oropharyngeal lesions, moist mucosa Neck: supple, symmetric, no JVD, no thyromegaly, no lymphadenopathy, no carotid bruit Heart: RRR, no murmur, no gallops, no rubs, normal peripheral pulses Respiratory: CTAB, no wheezes, no rales, no ronchi, normal chest expansion, no tachypnea, normal percussion Gastrointestinal: soft, non-tender, non-distended, normal bowel sounds, no palpable masses, no hepatomegaly, no splenomegaly, no bruit Extremities: no cyanosis, no clubbing, no edema Skin: normal turgor, no lesions, no rashes Neurological: cranial nerve grossly intact, normal sensation to touch, no weakness, no focal deficits, no new deficit Musculoskeletal: normal tone, normal strength, no muscle wasting Psychiatric: normal affect, normal behavior, A&O x 3 Hosp A/P - Plan old records reviewed/req, out of bed/ambulate, DVT proph w/lovenox Patient is a 55-year-old female with a past medical history of hypertension, obesity, type 2 diabetes mellitus, asthma who presented to the emergency room for shortness of breath. Patient reports that she was diagnosed with Covid approximately 1 week ago and her symptoms began with myalgias, cough progressing with fevers, and now shortness of breath. Patient reports that she was significantly short of breath with her O2 saturation in the 80s which prompted her to do a virtual care visit at [facility]. She was prescribed a dose of dexamethasone and advised to present to the emergency room, however she declined at that time. This morning however patient was even more short of breath and had difficulty walking around her home due to weakness and found her O2 saturation was at 70%. Patient denies chest pain, palpitations. Denies abdominal pain, but endorses nausea and diarrhea. She also reports dysuria and feels as though she might have a UTI. COVID-19 pneumonia 55-year-old female with past medical history of type 2 diabetes mellitus, obesity, hypertension presents with worsening shortness of breath and Covid positive status. Symptoms began approximately 1 week ago with cough fevers myalgias and progressive shortness of breath. Patient was seen previously for the [facility] virtual clinic and was started on dexamethasone day prior to admission, however O2 saturations continuing to drop and patient was 70% on room air. Now saturating well at 94% on 3 L nasal cannula. White blood cell count 7.4. Troponin 0 0.010. Chest x-ray shows severe multifocal ground glass opacities consistent with COVID-19 pneumonia. Based off of patient's comorbidities, likely baseline obesity hypoventilation syndrome, uncontrolled diabetes, and significant thickened changes on chest x-ray expect patient to have a difficult course. Will obtain baseline inflammatory markers, start convalescent plasma, continue dexamethasone, and start remdesivir. Plan -Decadron. -Remdesivir -Ceftriaxone, azithromycin -Supplemental oxygen -Tylenol, Robitussin -Convalescent plasma -CRP 20.46, D-dimer 0.44, Ferritin 407.82 Acute hypoxic respiratory failure Patient with acute hypoxic respiratory failure secondary to moderate to severe COVID-19 pneumonia. Patient with new oxygen requirement now on 2L of oxygen nasal cannula to maintain O2 sat. We will continue supplemental oxygen and closely monitor respiratory status. Treatment as above. Plan -Supplemental oxygen -Treatment as above -Closely monitor respiratory status Urinary tract infection Patient reports dysuria, foul-smelling urine, and hematuria over the past few days. UA grossly positive. Will start patient on ceftriaxone and continue to monitor. Plan Follow urine cultures Type 2 diabetes mellitus History of type 2 diabetes mellitus. Patient reports she was formally on Metformin but stopped due to unable to tolerate diarrhea side effects, and lapse in her insurance. Patient not currently on any diabetes medication. Will obtain hemoglobin A1c, place patient on insulin sliding scale and consider restarting patient on oral agent. Plan Hemoglobin A1c Insulin sliding scale ACHS glucose checks Carb consistent diet Hypertension History of hypertension. Patient not on any hypertensive medications currently since/of the left and insurance. Will make as needed hydralazine available and restart home medications as needed. Patient normotensive at this time. DVT prophylaxisLovenox Full code
[2020-11-04] MEDS: Acetaminophen 325 MG TAB PO PRN ×2 (10:56→20:19)
[2020-11-04] MEDS: REMDESIVIR (EUA) 100 MG in Sodium Chloride 0.9% 250 ML 230 ML IV SCH (10:56)
[2020-11-04] MEDS: Ondansetron PF 4 MG/2 ML Vial IVP PRN (10:56)
[2020-11-04] MEDS ORDERED: Albuterol 200 PUFF (6.7GM INHALER) INH PRN (11:01)
[2020-11-04] MEDS ORDERED: hydrOXYzine 25 MG TAB PO SCH (14:53)
[2020-11-04] MEDS: metFORMIN 500 MG TAB PO SCH ×2 (15:48→18:58)
[2020-11-04 19:19] LABS: #Lymphocytes 0.9 thou/uL (1.20-3.40); #Monocytes 0.4 thou/uL (0.11-0.59); #Neutrophils 8.2 thou/uL (1.40-6.50); %Basophils 0.1 % (0.0-1.0); %Eosinophils 0.2 % (0.0-10.0); %Lymphocytes 9.8 % (21.0-51.0); %Monocytes 3.7 % (0.0-10.0); %Neutrophils 86.2 % (42.0-75.0); Hemoglobin 13.5 g/dL (12.0-16.0); Mean Corpuscular HGB CONC 33.7 g/dL (32.0-36.0); Mean Corpuscular Volume 98.1 fL (78.0-98.0); Mean Platelet Volume 8.3 fL (7.4-10.4); Platelet Count 212 thou/uL (130-400); RBC Distribution Width 12.3 % (11.5-14.5); Red Blood Cell (RBC) Count 4.08 mill/uL (4.20-5.40); White Blood Cell (WBC) Count 9.5 thou/uL (4.8-10.8)
[2020-11-04 19:28] LABS: Hemoglobin A1c 8.8 % (4.0-6.0)
[2020-11-04 19:39] LABS: Anion Gap 16 mmol/L (10-20); BUN (Urea Nitrogen) 15 mg/dL (9.8-20.1); Calc. Creatinine Clearance 186 mL/min (70-130); Carbon Dioxide 22 mmol/L (22-29); Chloride 102 mmol/L (98-107); Glucose 350 mg/dL (70-105); Potassium 4.5 mmol/L (3.5-5.1); Sodium 135 mmol/L (136-145)
[2020-11-04] MEDS: Melatonin 3 MG TAB PO PRN (20:18)
[2020-11-05] MEDS: Ondansetron PF 4 MG/2 ML Vial IVP PRN ×2 (00:41→09:53)
[2020-11-05] MEDS: Ketorolac Tromethamine 30 MG/ML VIAL IVP PRN ×2 (00:41→09:47)
[2020-11-05] MEDS: Guaifenesin DM 100-10/5 ML UDCUP PO PRN (00:49)
[2020-11-05] MEDS: HumaLOG 300 UNITS/3 ML VIAL SC PRN ×4 (05:50→20:44)
[2020-11-05 06:32] LABS: #Lymphocytes 1.6 thou/uL (1.20-3.40); #Monocytes 0.7 thou/uL (0.11-0.59); #Neutrophils 6.5 thou/uL (1.40-6.50); %Eosinophils 0.3 % (0.0-10.0); %Lymphocytes 18.2 % (21.0-51.0); %Monocytes 7.9 % (0.0-10.0); %Neutrophils 73.7 % (42.0-75.0); Hemoglobin 12.4 g/dL (12.0-16.0); Mean Corpuscular HGB CONC 32.3 g/dL (32.0-36.0); Mean Corpuscular Volume 96.1 fL (78.0-98.0); Mean Platelet Volume 8.1 fL (7.4-10.4); Platelet Count 233 thou/uL (130-400); RBC Distribution Width 12.2 % (11.5-14.5); Red Blood Cell (RBC) Count 4.01 mill/uL (4.20-5.40); White Blood Cell (WBC) Count 8.8 thou/uL (4.8-10.8)
[2020-11-05 06:48] LABS: Anion Gap 14 mmol/L (10-20); BUN (Urea Nitrogen) 14 mg/dL (9.8-20.1); Calc. Creatinine Clearance 221 mL/min (70-130); Calcium 7.9 mg/dL (7.8-10.44); Carbon Dioxide 23 mmol/L (22-29); Chloride 104 mmol/L (98-107); Glucose 222 mg/dL (70-105); Potassium 4.1 mmol/L (3.5-5.1); Sodium 137 mmol/L (136-145)
[2020-11-05] MEDS: Zinc Sulfate 220 MG CAP PO SCH (07:53)
[2020-11-05] MEDS: Cholecalciferol (Vitamin D3) 400 UNITS TAB PO SCH (07:53)
[2020-11-05] MEDS: metFORMIN 500 MG TAB PO SCH ×2 (07:53→17:06)
[2020-11-05] MEDS: Ascorbic Acid 500 mg Chewable Tablet PO SCH (07:53)
[2020-11-05] MEDS: Dexamethasone 4 MG TAB PO SCH (07:53)
[2020-11-05] MEDS: Enoxaparin Sodium 40 MG/0.4 ML SYRINGE SC SCH ×2 (07:54→20:44)
[2020-11-05] MEDS: REMDESIVIR (EUA) 100 MG in Sodium Chloride 0.9% 250 ML 230 ML IV SCH (10:15)
[2020-11-05] MEDS: Loperamide HCl 2 MG CAP PO PRN ×2 (12:00→21:00)
--- NOTE | 2020-11-05 13:43 | PDOC.HOSPP ---
- Subjective Encounter Date: 11/05/20 Subjective: The patient is on 4 L of oxygen. She is complaining of shortness of breath. - Objective Vital Signs & Weight: Vital Signs (12 hours) Temp Pulse Resp BP BP Pulse Ox 11/05/20 12:00 97.8 F 53 L 16 136/78 95 11/05/20 08:00 94 L 11/05/20 07:50 97.5 F L 46 L 16 113/72 94 L 11/05/20 04:08 97.5 F L 50 L 18 136/84 95 Weight Weight 290 lb I&O: 11/04/20 11/05/20 11/06/20 06:59 06:59 06:59 Intake Total 240 240 Balance 240 240 Result Diagrams: 11/05/20 05:51 11/05/20 05:51 Additional Labs: Accuchecks 11/05/20 11/05/20 11/04/20 12:10 04:03 20:03 POC Glucose 260 H 232 H 303 H 11/04/20 11/03/20 15:52 11:52 POC Glucose 315 H 277 H Hospitalist ROS - Medication Medications: Active Medications Generic Name Dose Route Start Last Admin Trade Name Freq PRN Reason Stop Dose Admin Acetaminophen 650 mg 11/02/20 07:49 11/04/20 20:19 Acetaminophen 325 Mg Tab PO 650 mg Q4H PRN Administration Headache/Fever/Mild Pain (1-3) Ascorbic Acid 1,000 mg 11/05/20 09:00 11/05/20 07:53 Ascorbic Acid 500 Mg Chewable Tablet PO 1,000 mg DAILY MARTHA Administration Cholecalciferol 400 units 11/05/20 09:00 11/05/20 07:53 Cholecalciferol (Vitamin D3) 400 Units Tab PO 400 units DAILY MARTHA Administration Dexamethasone 6 mg 11/02/20 08:00 11/05/20 07:53 Dexamethasone 4 Mg Tab PO 6 mg QAM-WM MARTHA Administration Enoxaparin Sodium 40 mg 11/02/20 09:00 11/05/20 07:54 Enoxaparin Sodium 40 Mg/0.4 Ml Syringe SC 40 mg 0900,2100 MARTHA Administration Guaifenesin/Dextromethorphan 15 ml 11/02/20 07:49 11/05/20 00:49 Guaifenesin Dm 100-10/5 Ml Udcup PO 15 ml Q4H PRN Administration Cough Remdesivir 100 mg/ Sodium 250 mls @ 250 mls/hr 11/03/20 10:00 11/05/20 10:15 Chloride IV 11/06/20 10:59 250 mls 1000 MARTHA Administration Insulin Human Lispro 0 units 11/02/20 08:56 11/04/20 20:23 Humalog 300 Units/3 Ml Vial SC 4 unit .BEDTIME SLIDING SC PRN Administration Bedtime Correctional Scale Insulin Human Lispro 0 units 11/04/20 11:00 11/05/20 12:27 Humalog 300 Units/3 Ml Vial SC 6 unit .MODERATE SLIDING SC PRN Administration Moderate Correctional Scale Ketorolac Tromethamine 15 mg 11/02/20 10:20 11/05/20 09:47 Ketorolac Tromethamine 30 Mg/Ml Vial IVP 11/07/20 10:21 15 mg Q6H PRN Administration Pain Loperamide HCl 2 mg 11/02/20 07:49 11/05/20 12:00 Loperamide Hcl 2 Mg Cap PO 2 mg PRN PRN Administration Diarrhea/Loose Stools Melatonin 3 mg 11/03/20 17:56 11/04/20 20:18 Melatonin 3 Mg Tab PO 3 mg HS PRN Administration Insomnia Metformin HCl 1,000 mg 11/04/20 17:00 11/05/20 07:53 Metformin 500 Mg Tab PO 1,000 mg BID-WM MARTHA Administration Ondansetron HCl 4 mg 11/04/20 10:03 11/05/20 09:53 Ondansetron Pf 4 Mg/2 Ml Vial IVP 4 mg Q6H PRN Administration Nausea/Vomiting Zinc Sulfate 220 mg 11/05/20 09:00 11/05/20 07:53 Zinc Sulfate 220 Mg Cap PO 220 mg DAILY MARTHA Administration - Exam General Appearance: awake alert ENT: normocephalic atraumatic Neck: supple, no JVD Heart: RRR Respiratory: normal chest expansion, no tachypnea Extremities: no cyanosis, no clubbing Hosp A/P (1) Acute respiratory failure with hypoxia Code(s): J96.01 - ACUTE RESPIRATORY FAILURE WITH HYPOXIA Status: Acute (2) Pneumonia due to COVID-19 virus Code(s): U07.1 - COVID-19; J12.82 - PNEUMONIA DUE TO CORONAVIRUS DISEASE 2019 Status: Acute (3) Morbid obesity Code(s): E66.01 - MORBID (SEVERE) OBESITY DUE TO EXCESS CALORIES Status: Acute (4) UTI (urinary tract infection) Status: Acute - Plan Continue supplemental oxygen as needed. Continue dexamethasone, enoxaparin, remdesivir, and ceftriaxone.
[2020-11-05] MEDS: cefTRIAXone\\ROCEPHIN 1 GM in Sodium Chloride 0.9% 100 ML IVPB SCH (13:48)
[2020-11-05] MEDS: Acetaminophen 325 MG TAB PO PRN (17:39)
[2020-11-05] MEDS: Melatonin 3 MG TAB PO PRN (21:00)
[2020-11-05] MEDS: Ondansetron ODT 4 MG TAB PO PRN (21:04)
[2020-11-06] MEDS: HumaLOG 300 UNITS/3 ML VIAL SC PRN ×4 (05:49→20:21)
[2020-11-06 07:08] LABS: #Lymphocytes 1.6 thou/uL (1.20-3.40); #Monocytes 0.8 thou/uL (0.11-0.59); #Neutrophils 8.3 thou/uL (1.40-6.50); %Basophils 0.2 % (0.0-1.0); %Eosinophils 0.2 % (0.0-10.0); %Lymphocytes 14.9 % (21.0-51.0); %Monocytes 7.2 % (0.0-10.0); %Neutrophils 77.5 % (42.0-75.0); Hemoglobin 13.7 g/dL (12.0-16.0); Mean Corpuscular Hemoglobin 30.8 pg (27.0-31.0); Mean Corpuscular Volume 96.5 fL (78.0-98.0); Mean Platelet Volume 7.8 fL (7.4-10.4); Platelet Count 304 thou/uL (130-400); RBC Distribution Width 12.1 % (11.5-14.5); Red Blood Cell (RBC) Count 4.44 mill/uL (4.20-5.40); White Blood Cell (WBC) Count 10.6 thou/uL (4.8-10.8)
[2020-11-06 07:25] LABS: Anion Gap 15 mmol/L (10-20); BUN (Urea Nitrogen) 13 mg/dL (9.8-20.1); Calc. Creatinine Clearance 189 mL/min (70-130); Calcium 8.2 mg/dL (7.8-10.44); Carbon Dioxide 27 mmol/L (22-29); Chloride 101 mmol/L (98-107); Glucose 192 mg/dL (70-105); Potassium 3.9 mmol/L (3.5-5.1); Sodium 139 mmol/L (136-145)
[2020-11-06] MEDS: Enoxaparin Sodium 40 MG/0.4 ML SYRINGE SC SCH ×2 (08:04→20:22)
[2020-11-06] MEDS: Zinc Sulfate 220 MG CAP PO SCH (08:04)
[2020-11-06] MEDS: Ascorbic Acid 500 mg Chewable Tablet PO SCH (08:04)
[2020-11-06] MEDS: Cholecalciferol (Vitamin D3) 400 UNITS TAB PO SCH (08:04)
[2020-11-06] MEDS: Dexamethasone 4 MG TAB PO SCH (08:04)
[2020-11-06] MEDS: metFORMIN 500 MG TAB PO SCH (08:22)
[2020-11-06] MEDS ORDERED: Sodium Chloride Nasal 15 GM TUBE EA NARE PRN (09:41)
[2020-11-06] MEDS ORDERED: traMADol HCl 50 MG TAB PO PRN (09:42)
[2020-11-06] MEDS: REMDESIVIR (EUA) 100 MG in Sodium Chloride 0.9% 250 ML 230 ML IV SCH (09:45)
--- NOTE | 2020-11-06 11:07 | PDOC.HOSPP ---
- Subjective Encounter Date: 11/06/20 Subjective: She is currently on 4 L nasal cannula. Complains of headache. - Objective Vital Signs & Weight: Vital Signs (12 hours) Temp Pulse Resp BP Pulse Ox 11/06/20 08:28 97.9 F 54 L 20 121/74 99 11/06/20 08:00 99 Weight Weight 290 lb I&O: 11/05/20 11/06/20 11/07/20 06:59 06:59 06:59 Intake Total 240 240 240 Balance 240 240 240 Result Diagrams: 11/07/20 09:43 11/07/20 09:43 Additional Labs: Accuchecks 11/06/20 11/05/20 11/05/20 05:10 20:04 16:13 POC Glucose 181 H 292 H 333 H 11/05/20 12:10 POC Glucose 260 H Hospitalist ROS - Medication Medications: Active Medications Generic Name Dose Route Start Last Admin Trade Name Freq PRN Reason Stop Dose Admin Acetaminophen 650 mg 11/02/20 07:49 11/05/20 17:39 Acetaminophen 325 Mg Tab PO 650 mg Q4H PRN Administration Headache/Fever/Mild Pain (1-3) Ascorbic Acid 1,000 mg 11/05/20 09:00 11/06/20 08:04 Ascorbic Acid 500 Mg Chewable Tablet PO 1,000 mg DAILY MARTHA Administration Cholecalciferol 400 units 11/05/20 09:00 11/06/20 08:04 Cholecalciferol (Vitamin D3) 400 Units Tab PO 400 units DAILY MARTHA Administration Dexamethasone 6 mg 11/02/20 08:00 11/06/20 08:04 Dexamethasone 4 Mg Tab PO 6 mg QAM-WM MARTHA Administration Enoxaparin Sodium 40 mg 11/02/20 09:00 11/06/20 08:04 Enoxaparin Sodium 40 Mg/0.4 Ml Syringe SC 40 mg 0900,2100 MARTHA Administration Guaifenesin/Dextromethorphan 15 ml 11/02/20 07:49 11/05/20 00:49 Guaifenesin Dm 100-10/5 Ml Udcup PO 15 ml Q4H PRN Administration Cough Ceftriaxone Sodium 1 gm/ 100 mls @ 200 mls/hr 11/05/20 14:00 11/05/20 13:48 Sodium Chloride IVPB 100 mls 1400 MARTHA Administration Insulin Human Lispro 0 units 11/02/20 08:56 11/05/20 20:44 Humalog 300 Units/3 Ml Vial SC 3 unit .BEDTIME SLIDING SC PRN Administration Bedtime Correctional Scale Insulin Human Lispro 0 units 11/04/20 11:00 11/06/20 11:00 Humalog 300 Units/3 Ml Vial SC 4 unit .MODERATE SLIDING SC PRN Administration Moderate Correctional Scale Ketorolac Tromethamine 15 mg 11/02/20 10:20 11/05/20 09:47 Ketorolac Tromethamine 30 Mg/Ml Vial IVP 11/07/20 10:21 15 mg Q6H PRN Administration Pain Loperamide HCl 2 mg 11/02/20 07:49 11/05/20 21:00 Loperamide Hcl 2 Mg Cap PO 2 mg PRN PRN Administration Diarrhea/Loose Stools Melatonin 3 mg 11/03/20 17:56 11/05/20 21:00 Melatonin 3 Mg Tab PO 3 mg HS PRN Administration Insomnia Ondansetron HCl 4 mg 11/04/20 10:03 11/05/20 09:53 Ondansetron Pf 4 Mg/2 Ml Vial IVP 4 mg Q6H PRN Administration Nausea/Vomiting Ondansetron HCl 4 mg 11/05/20 20:57 11/05/20 21:04 Ondansetron Odt 4 Mg Tab PO 4 mg Q6H PRN Administration Nausea/Vomiting Zinc Sulfate 220 mg 11/05/20 09:00 11/06/20 08:04 Zinc Sulfate 220 Mg Cap PO 220 mg DAILY MARTHA Administration - Exam General Appearance: awake alert ENT: normocephalic atraumatic Neck: supple, no JVD Heart: RRR Extremities: no cyanosis, no clubbing Hosp A/P (1) Acute respiratory failure with hypoxia Code(s): J96.01 - ACUTE RESPIRATORY FAILURE WITH HYPOXIA Status: Acute (2) Pneumonia due to COVID-19 virus Code(s): U07.1 - COVID-19; J12.82 - PNEUMONIA DUE TO CORONAVIRUS DISEASE 2019 Status: Acute (3) Morbid obesity Code(s): E66.01 - MORBID (SEVERE) OBESITY DUE TO EXCESS CALORIES Status: Acute (4) UTI (urinary tract infection) Status: Acute - Plan The patient is on 4 L of oxygen we will try to wean her 3 L. After completing her remdesivir, she will likely be able to go home on oxygen. Continue dexamethasone, enoxaparin, remdesivir, and ceftriaxone.
[2020-11-06] MEDS: cefTRIAXone\\ROCEPHIN 1 GM in Sodium Chloride 0.9% 100 ML IVPB SCH (13:54)
[2020-11-06] MEDS: Acetaminophen 325 MG TAB PO PRN (17:31)
[2020-11-06] MEDS: Ondansetron ODT 4 MG TAB PO PRN (20:23)
[2020-11-07] MEDS: HumaLOG 300 UNITS/3 ML VIAL SC PRN ×2 (05:58→11:40)
[2020-11-07] MEDS: Ascorbic Acid 500 mg Chewable Tablet PO SCH (07:50)
[2020-11-07] MEDS: Enoxaparin Sodium 40 MG/0.4 ML SYRINGE SC SCH (07:50)
[2020-11-07] MEDS: Dexamethasone 4 MG TAB PO SCH (07:50)
[2020-11-07] MEDS: Zinc Sulfate 220 MG CAP PO SCH (07:50)
[2020-11-07] MEDS: Cholecalciferol (Vitamin D3) 400 UNITS TAB PO SCH (07:50)
[2020-11-07 09:12] VITALS: BP 120/71; TEMP 98.5
[2020-11-07 09:51] LABS: Hemoglobin 13.5 g/dL (12.0-16.0); Mean Corpuscular HGB CONC 32.7 g/dL (32.0-36.0); Mean Corpuscular Volume 94.8 fL (78.0-98.0); Mean Platelet Volume 8.2 fL (7.4-10.4); Platelet Count 262 thou/uL (130-400); RBC Distribution Width 12.4 % (11.5-14.5); Red Blood Cell (RBC) Count 4.35 mill/uL (4.20-5.40); White Blood Cell (WBC) Count 15.5 thou/uL (4.8-10.8)
[2020-11-07 10:04] LABS: Anion Gap 14 mmol/L (10-20); BUN (Urea Nitrogen) 11 mg/dL (9.8-20.1); Calc. Creatinine Clearance 201 mL/min (70-130); Calcium 8.2 mg/dL (7.8-10.44); Carbon Dioxide 25 mmol/L (22-29); Chloride 104 mmol/L (98-107); Glucose 183 mg/dL (70-105); Potassium 4.3 mmol/L (3.5-5.1); Sodium 139 mmol/L (136-145)
[2020-11-07] MEDS: Acetaminophen 325 MG TAB PO PRN (10:59)
[2020-11-07 11:02] LABS: Band 2 % (5-11); Lymphocytes 14 % (21-51); MDiff Complete? YES; Monocytes 4 % (0-10); Neutrophil 78 % (42-75); Platelet Morphology Comment Appears Adequate; RBC Morphology Normal; Reactive Lymphocytes 2 % (0-10)
--- NOTE | 2020-11-07 12:19 | PDOC.DS.DS ---
Provider - Provider Date of Admission: 11/02/20 06:43 Date of Discharge: 11/07/20 Admitting Provider: Tariq Duncan MD Primary Care Physician: Naomy Damon MD Course - Hospital Course Hospital Course: The patient is a 55-year-old female with medical history of obesity, hypertension, and type 2 diabetes mellitus who was admitted to the hospital for acute respiratory failure with hypoxia secondary to COVID-19 infection. She was managed with dexamethasone, enoxaparin, supplemental oxygen, and antibiotics. Her condition improved over 72 hours and she was discharged home on oxygen. Resuscitation Status: 11/02/20 07:49 Resuscitation Status Routine Co-Sign Provider: Resuscitation Status: FULL: Full Resuscitation - Labs Lab Results: 11/07/20 09:43 11/07/20 09:43 Abnormal Lab Results - Last 48 hrs 11/06/20 06:51: Neutrophils % 77.5 H, Lymphocytes % 14.9 L, Neutrophils # 8.3 H, Monocytes # 0.8 H 11/07/20 09:43: WBC 15.5 H, Neutrophils % (Manual) 78 H, Band Neuts % (Manual) 2 L, Lymphocytes % (Manual) 14 L Microbiology - Entire Visit 11/04/20 17:09 Urine clean catch Urine Culture - Final Presumptive Thi albicans - Physical Exam Vitals: Vital Signs (12 hours) Temp Pulse Resp BP Pulse Ox 11/07/20 09:12 98.5 F 50 L 20 120/71 97 11/07/20 08:00 97 11/07/20 05:18 97.7 F 54 L 20 131/84 93 L Weight Weight 290 lb Physical Exam: The patient was seen and examined on the day of discharge. Problem - Problem (1) Acute respiratory failure with hypoxia Code(s): J96.01 - ACUTE RESPIRATORY FAILURE WITH HYPOXIA Status: Acute (2) Pneumonia due to COVID-19 virus Code(s): U07.1 - COVID-19; J12.82 - PNEUMONIA DUE TO CORONAVIRUS DISEASE 2019 Status: Acute (3) Morbid obesity Code(s): E66.01 - MORBID (SEVERE) OBESITY DUE TO EXCESS CALORIES Status: Acute (4) UTI (urinary tract infection) Status: Acute Plan - Discharge Medications Prescriptions: Doxycycline [Vibramycin] 100 mg PO Q12HR #14 cap Dexamethasone 6 mg PO DAILY #8 tablet Home Medications: Medication Instructions Recorded Confirmed Type Dexamethasone 6 mg PO DAILY #8 tablet 11/07/20 Rx Doxycycline [Vibramycin] 100 mg PO Q12HR #14 cap 11/07/20 Rx Allergies: No Known Allergies Allergy (Unverified 01/06/20 14:14) - Follow up Plan Referrals: Naomy Damon MD [Primary Care Provider] - Disposition: HOME Quality - Care Measures CORE MEASURES:: N/A
[2020-11-07] MEDS: cefTRIAXone\\ROCEPHIN 1 GM in Sodium Chloride 0.9% 100 ML IVPB SCH (13:39)
--- NOTE | 2020-11-24 18:36 | EKG ---
Test Reason : SOB Blood Pressure : / mmHG Vent. Rate : 066 BPM Atrial Rate : 340 BPM P-R Int : 000 ms QRS Dur : 148 ms QT Int : 478 ms P-R-T Axes : 018 -37 136 degrees QTc Int : 501 ms Atrial flutter with 5:1 A-V conduction Left axis deviation Left ventricular hypertrophy with QRS widening and repolarization abnormality Lateral infarct , age undetermined Abnormal ECG Confirmed by POLY SAMANIEGO ([id number]), book editor LOIDA JAMISON ([id number]) on 11/24/2020 6:36:07 PM Referred By: Confirmed By:POLY SAMANIEGO
== END 2020-11-07 14:46 | disposition home or self-care (01) | DRG 177 ==
LOC: ERS 05:31 → T4-A 06:43
PROVIDERS: ADMIT Internal Medicine; ATTEND Internal Medicine
PROC: 8E0ZXY6 Isolation (ICD-10-PCS; principal; 2019-11-02)
PROC: XW033E5 Introduction of Remdesivir Anti-infective into Peripheral Vein, Percutaneous Approach, New Technology Group 5 (ICD-10-PCS; 2020-11-03)
PROC: XW13325 Transfusion of Convalescent Plasma (Nonautologous) into Peripheral Vein, Percutaneous Approach, New Technology Group 5 (ICD-10-PCS; 2020-11-04)
DX: U07.1 COVID-19 (principal); J12.82 Pneumonia due to coronavirus disease 2019; J96.01 Acute respiratory failure with hypoxia; N39.0 Urinary tract infection, site not specified; Z68.43 Body mass index [BMI] 50.0-59.9, adult; E66.2 Morbid (severe) obesity with alveolar hypoventilation; I10 Essential (primary) hypertension; J45.909 Unspecified asthma, uncomplicated; E11.9 Type 2 diabetes mellitus without complications; Z98.51 Tubal ligation status; Z90.49 Acquired absence of other specified parts of digestive tract; Z98.890 Other specified postprocedural states
CPT/HCPCS: 36415; 36416; 36430; 51701; 71045; 80048; 80053; 81003; 81015; 82728; 83036; 83615; 84484; 85025; 85379; 85652; 86140; 86850; 86900; 86901; 87086; 93005; 96374; 96375; J0696; J1100; J1650; J1885; J2060; J2405; J2765; J3490; J7050; J8540; P9017; Q0162

== ENCOUNTER 2021-04-23 14:40 | Outpatient (CLI) | payer OTHER | END 2021-04-23 14:41 | disposition home or self-care (01) | LOC: TBSIIMAG 14:40 | PROVIDERS: ATTEND Orthopaedic Surgery | DX: M47.812 Spondylosis without myelopathy or radiculopathy, cervical region (principal) | CPT/HCPCS: 72141 ==

== ENCOUNTER 2022-06-23 19:27 | Emergency (ER) | payer SELFPAY ==
[2022-06-23] MEDS ORDERED: Albuterol Sulfate 2.5 mg/0.5 ml Neb ONE (20:59)
[2022-06-23 21:14] LABS: #Eosinphils 0.2 thou/uL (0.0-0.7); #Lymphocytes 1.8 thou/uL (1.20-3.40); #Monocytes 0.7 thou/uL (0.11-0.59); %Basophils 0.5 % (0.0-1.0); %Eosinophils 2.7 % (0.0-10.0); %Lymphocytes 27.3 % (21.0-51.0); %Monocytes 10.7 % (0.0-10.0); %Neutrophils 58.9 % (42.0-75.0); Hemoglobin 13.4 g/dL (12.0-16.0); Mean Corpuscular HGB CONC 32.9 g/dL (32.0-36.0); Mean Corpuscular Hemoglobin 31.6 pg (27.0-31.0); Mean Corpuscular Volume 96.2 fL (78.0-98.0); Mean Platelet Volume 8.4 fL (7.4-10.4); Platelet Count 192 thou/uL (130-400); RBC Distribution Width 12.4 % (11.5-14.5); Red Blood Cell (RBC) Count 4.23 mill/uL (4.20-5.40); White Blood Cell (WBC) Count 6.7 thou/uL (4.8-10.8)
[2022-06-23 21:36] LABS: ALT (SGPT) 9 U/L (8-55); AST (SGOT) 14 U/L (5-34); Albumin 3.6 g/dL (3.5-5.0); Alkaline Phosphatase 118 U/L (40-110); Anion Gap 17 mmol/L (10-20); BUN (Urea Nitrogen) 12 mg/dL (9.8-20.1); Bilirubin, Total 0.5 mg/dL (0.2-1.2); Calc. Creatinine Clearance 0 mL/min (70-130); Calcium 8.8 mg/dL (7.8-10.44); Carbon Dioxide 25 mmol/L (22-29); Chloride 101 mmol/L (98-107); Estimated GFR 88; Globulin 3.2 g/dL (2.4-3.5); Glucose 196 mg/dL (70-105); Protein, Total 6.8 g/dL (6.0-8.3); Sodium 139 mmol/L (136-145)
[2022-06-23] MEDS ORDERED: cefTRIAXone\\ROCEPHIN 1 GM VIAL ONE (21:48)
[2022-06-23] MEDS ORDERED: Lidocaine 1% MPF 2 ML VIAL ONE ×2 (21:49→21:50)
[2022-06-23] MEDS ORDERED: Lidocaine 1% PF 5 ML VIAL ONE (21:49)
[2022-06-23] MEDS ORDERED: Dexamethasone 10 MG/ML VIAL ONE (21:51)
== END 2022-06-23 22:15 | disposition home or self-care (01) ==
LOC: ERS 19:27
DX: J45.909 Unspecified asthma, uncomplicated (principal); J20.9 Acute bronchitis, unspecified
CPT/HCPCS: 36415; 71045; 80053; 83605; 84484; 85025; 87040; 94640; 96372; J0696; J1100; J7611; J7620

== ENCOUNTER 2022-07-01 06:33 | Inpatient (IN) | payer SELFPAY ==
[2022-07-01 09:02] LABS: #Eosinphils 0.1 thou/uL (0.0-0.7); #Lymphocytes 4.6 thou/uL (1.20-3.40); %Basophils 0.2 % (0.0-1.0); %Eosinophils 0.9 % (0.0-10.0); %Lymphocytes 27.3 % (21.0-51.0); %Monocytes 5.9 % (0.0-10.0); %Neutrophils 65.7 % (42.0-75.0); Hemoglobin 10.8 g/dL (12.0-16.0); Mean Corpuscular HGB CONC 32.4 g/dL (32.0-36.0); Mean Corpuscular Hemoglobin 31.3 pg (27.0-31.0); Mean Corpuscular Volume 96.7 fL (78.0-98.0); Mean Platelet Volume 8.6 fL (7.4-10.4); Platelet Count 249 thou/uL (130-400); RBC Distribution Width 12.4 % (11.5-14.5); Red Blood Cell (RBC) Count 3.46 mill/uL (4.20-5.40); White Blood Cell (WBC) Count 16.7 thou/uL (4.8-10.8)
[2022-07-01 09:23] LABS: ALT (SGPT) 15 U/L (8-55); AST (SGOT) 13 U/L (5-34); Albumin 3.4 g/dL (3.5-5.0); Alkaline Phosphatase 94 U/L (40-110); Anion Gap 14 mmol/L (10-20); BUN (Urea Nitrogen) 16 mg/dL (9.8-20.1); Bilirubin, Total 0.7 mg/dL (0.2-1.2); Calc. Creatinine Clearance 0 mL/min (70-130); Calcium 9.1 mg/dL (7.8-10.44); Carbon Dioxide 25 mmol/L (22-29); Chloride 104 mmol/L (98-107); Estimated GFR 102; Globulin 3.1 g/dL (2.4-3.5); Glucose 135 mg/dL (70-105); Potassium 4.3 mmol/L (3.5-5.1); Protein, Total 6.5 g/dL (6.0-8.3); Sodium 139 mmol/L (136-145)
[2022-07-01] MEDS ORDERED: Morphine 4 MG/ML VIAL ONE (10:21)
[2022-07-01] MEDS ORDERED: Ondansetron PF 4 MG/2 ML Vial ONE (10:21)
[2022-07-01] MEDS ORDERED: Ketorolac Tromethamine 30 MG/ML VIAL ONE (10:21)
[2022-07-01] MEDS ORDERED: Iopamidol-370 76% 500 ML 1 ML ONE (10:36)
[2022-07-01 11:51] LABS: SARS-CoV-2 NAA Rapid Test DETECTED (NotDetected)
[2022-07-01] MEDS ORDERED: Dextrose 50% Abboject 50 ML SYRINGE SLOW IVP PRN (14:16)
[2022-07-01] MEDS ORDERED: Dextrose 5% in Water 1,000 ML IV PRN (14:16)
[2022-07-01 14:52] LABS: Hemoglobin A1c 7.1 % (4.0-6.0)
[2022-07-01] MEDS ORDERED: Lidocaine 5% Patch TD SCH (15:00)
[2022-07-01 15:07] LABS: Troponin I Less than 0.010 ng/mL (< 0.028)
[2022-07-01 17:37] VITALS: BMI 49.3
[2022-07-01] MEDS ORDERED: Ipratropium Oral Inhaler INH PRN (18:07)
[2022-07-01] MEDS: Ketorolac Tromethamine 30 MG/ML VIAL IVP SCH ×2 (18:28→22:35)
[2022-07-01] MEDS: Lidocaine 5% Patch TD SCH (18:29)
[2022-07-01] MEDS: Famotidine 20 MG TAB PO SCH (21:10)
[2022-07-01] MEDS: Baclofen 10 MG TAB PO SCH (21:10)
[2022-07-01 22:30] LABS: Troponin I Less than 0.010 ng/mL (< 0.028)
[2022-07-01 23:33] LABS: Amphetamine Not Detected (NotDetected); Barbiturates Screen Not Detected (NotDetected); Benzodiazepine Screen Not Detected (NotDetected); Cocaine Metabolite Screen Not Detected (NotDetected); Methadone Not Detected (NotDetected); Methamphetamine Not Detected (NotDetected); Opiate Screen Detected (NotDetected); Oxycodone Screen Not Detected (NotDetected); Phencyclidine (PCP) Not Detected (NotDetected); THC/Cannabinoid Screen Not Detected (NotDetected); Tricyclic Screen Not Detected (NotDetected)
[2022-07-01 23:49] LABS: Bacteria/HPF None Seen HPF (None Seen); Bilirubin Negative (Negative); Blood, Urine 1+ (Negative); Clarity Clear (Clear); Glucose, Urine (Dipstick) Normal (Negative); Ketone, Urine Negative (Negative); Leukocyte 25 Leu/uL (Negative); Nitrite Negative (Negative); Protein, Urine (Dipstick) 10 mg/dL (Neg-Trace); Specific Gravity, Urine 1.036 (1.002-1.036); pH, Urine 5.5 (5.0-9.0)
[2022-07-01 23:58] LABS: Urine Culture Reflex No No
[2022-07-02] MEDS: Ondansetron ODT 4 MG TAB PO PRN (00:50)
[2022-07-02] MEDS: Ketorolac Tromethamine 30 MG/ML VIAL IVP SCH (03:11)
[2022-07-02] MEDS: Transdermal Patch Removal TOP SCH (03:12)
[2022-07-02 05:23] LABS: ALT (SGPT) 21 U/L (8-55); AST (SGOT) 21 U/L (5-34); Albumin 3.3 g/dL (3.5-5.0); Alkaline Phosphatase 96 U/L (40-110); Anion Gap 14 mmol/L (10-20); BUN (Urea Nitrogen) 21 mg/dL (9.8-20.1); Bilirubin, Total 0.8 mg/dL (0.2-1.2); Calc. Creatinine Clearance 176 mL/min (70-130); Calcium 9.1 mg/dL (7.8-10.44); Carbon Dioxide 24 mmol/L (22-29); Cardiac Risk 4.2 (Less than 4.5); Chloride 104 mmol/L (98-107); Cholesterol 157 mg/dl (< 200 Desired); Estimated GFR 101; Globulin 2.8 g/dL (2.4-3.5); Glucose 205 mg/dL (70-105); HDL Cholesterol 37 mg/dL (>60 Neg Risk); LDL Cholesterol, Calculated 77 mg/dL; Potassium 4.1 mmol/L (3.5-5.1); Protein, Total 6.1 g/dL (6.0-8.3); Sodium 138 mmol/L (136-145); Triglycerides 216 mg/dL (Less than 150)
[2022-07-02] MEDS: HumaLOG 300 UNITS/3 ML VIAL SC PRN (05:26)
[2022-07-02 07:10] LABS: Magnesium 1.8 mg/dL (1.6-2.6)
[2022-07-02 09:24] LABS: #Eosinphils 0.3 thou/uL (0.0-0.7); #Lymphocytes 2.2 thou/uL (1.20-3.40); #Monocytes 0.8 thou/uL (0.11-0.59); %Basophils 0.1 % (0.0-1.0); %Eosinophils 2.1 % (0.0-10.0); %Lymphocytes 16.4 % (21.0-51.0); %Neutrophils 75.5 % (42.0-75.0); Hemoglobin 13.4 g/dL (12.0-16.0); Mean Corpuscular HGB CONC 31.7 g/dL (32.0-36.0); Mean Corpuscular Hemoglobin 30.3 pg (27.0-31.0); Mean Corpuscular Volume 95.7 fL (78.0-98.0); Mean Platelet Volume 7.9 fL (7.4-10.4); Platelet Count 249 thou/uL (130-400); RBC Distribution Width 12.6 % (11.5-14.5); Red Blood Cell (RBC) Count 4.42 mill/uL (4.20-5.40); White Blood Cell (WBC) Count 13.2 thou/uL (4.8-10.8)
[2022-07-02] MEDS: Enoxaparin Sodium 40 MG/0.4 ML SYRINGE SC SCH (09:42)
[2022-07-02] MEDS: Baclofen 10 MG TAB PO SCH ×2 (09:42→21:48)
[2022-07-02] MEDS: Aspirin 81 mg Enteric Coated Tablet PO SCH (09:42)
[2022-07-02] MEDS: Famotidine 20 MG TAB PO SCH ×2 (09:42→21:48)
[2022-07-02] MEDS: Losartan 25 MG TAB PO SCH (09:42)
[2022-07-02] MEDS: Lidocaine 5% Patch TD SCH (18:18)
[2022-07-03] MEDS: Transdermal Patch Removal TOP SCH (03:30)
[2022-07-03 04:58] LABS: #Basophils 0.1 thou/uL (0.0-0.2); #Eosinphils 0.2 thou/uL (0.0-0.7); #Monocytes 0.7 thou/uL (0.11-0.59); #Neutrophils 7.5 thou/uL (1.40-6.50); %Basophils 0.6 % (0.0-1.0); %Eosinophils 1.8 % (0.0-10.0); %Lymphocytes 25.7 % (21.0-51.0); %Monocytes 6.2 % (0.0-10.0); %Neutrophils 65.7 % (42.0-75.0); Hemoglobin 12.7 g/dL (12.0-16.0); Mean Corpuscular HGB CONC 32.4 g/dL (32.0-36.0); Mean Corpuscular Hemoglobin 31.2 pg (27.0-31.0); Mean Corpuscular Volume 96.4 fL (78.0-98.0); Mean Platelet Volume 7.8 fL (7.4-10.4); Platelet Count 251 thou/uL (130-400); RBC Distribution Width 12.6 % (11.5-14.5); Red Blood Cell (RBC) Count 4.06 mill/uL (4.20-5.40); White Blood Cell (WBC) Count 11.5 thou/uL (4.8-10.8)
[2022-07-03 05:20] LABS: ALT (SGPT) 19 U/L (8-55); AST (SGOT) 18 U/L (5-34); Albumin 3.3 g/dL (3.5-5.0); Alkaline Phosphatase 102 U/L (40-110); Anion Gap 13 mmol/L (10-20); BUN (Urea Nitrogen) 16 mg/dL (9.8-20.1); Bilirubin, Total 0.9 mg/dL (0.2-1.2); Calc. Creatinine Clearance 182 mL/min (70-130); Calcium 9.2 mg/dL (7.8-10.44); Carbon Dioxide 25 mmol/L (22-29); Chloride 104 mmol/L (98-107); Estimated GFR 101; Globulin 2.9 g/dL (2.4-3.5); Glucose 172 mg/dL (70-105); Magnesium 1.8 mg/dL (1.6-2.6); Potassium 3.8 mmol/L (3.5-5.1); Protein, Total 6.2 g/dL (6.0-8.3); Sodium 138 mmol/L (136-145)
[2022-07-03] MEDS: Acetaminophen 325 MG TAB PO PRN (10:38)
[2022-07-03] MEDS: Baclofen 10 MG TAB PO SCH ×2 (10:38→20:57)
[2022-07-03] MEDS: Famotidine 20 MG TAB PO SCH ×2 (10:41→20:57)
[2022-07-03] MEDS: Enoxaparin Sodium 40 MG/0.4 ML SYRINGE SC SCH (10:42)
[2022-07-03] MEDS: Aspirin 81 mg Enteric Coated Tablet PO SCH (10:42)
[2022-07-03] MEDS: Losartan 25 MG TAB PO SCH (10:42)
[2022-07-03] MEDS: HumaLOG 300 UNITS/3 ML VIAL SC PRN (11:04)
[2022-07-03] MEDS ORDERED: Ibuprofen 600 MG TAB PO PRN (11:34)
[2022-07-03] MEDS ORDERED: Iopamidol-370 76% 500 ML 1 ML ONE (14:51)
[2022-07-03] MEDS ORDERED: HYDROcodone/Acetaminophen 5/325 mg Tablet PO PRN ×2 (15:23→15:25)
[2022-07-03] MEDS ORDERED: Morphine 4 MG/ML VIAL SLOW IVP PRN (15:25)
[2022-07-03] MEDS: Lidocaine 5% Patch TD SCH (15:46)
[2022-07-03] MEDS ORDERED: Naloxone HCl 0.4 mg/ml Vial IV PRN (16:27)
[2022-07-03] MEDS: Ibuprofen 600 MG TAB PO SCH ×2 (18:00→20:58)
[2022-07-03] MEDS: Gabapentin 300 MG CAP PO SCH (20:59)
[2022-07-03] MEDS: Ondansetron ODT 4 MG TAB PO PRN (21:09)
[2022-07-04 04:29] LABS: #Basophils 0.1 thou/uL (0.0-0.2); #Eosinphils 0.2 thou/uL (0.0-0.7); #Lymphocytes 2.7 thou/uL (1.20-3.40); #Monocytes 0.7 thou/uL (0.11-0.59); #Neutrophils 6.6 thou/uL (1.40-6.50); %Basophils 0.5 % (0.0-1.0); %Eosinophils 1.6 % (0.0-10.0); %Lymphocytes 26.1 % (21.0-51.0); %Monocytes 6.9 % (0.0-10.0); %Neutrophils 64.8 % (42.0-75.0); Hemoglobin 13.2 g/dL (12.0-16.0); Mean Corpuscular HGB CONC 32.8 g/dL (32.0-36.0); Mean Corpuscular Hemoglobin 31.7 pg (27.0-31.0); Mean Corpuscular Volume 96.8 fL (78.0-98.0); Mean Platelet Volume 8.1 fL (7.4-10.4); Platelet Count 237 thou/uL (130-400); RBC Distribution Width 12.5 % (11.5-14.5); Red Blood Cell (RBC) Count 4.15 mill/uL (4.20-5.40); White Blood Cell (WBC) Count 10.2 thou/uL (4.8-10.8)
[2022-07-04 04:43] LABS: ALT (SGPT) 18 U/L (8-55); AST (SGOT) 16 U/L (5-34); Albumin 3.4 g/dL (3.5-5.0); Alkaline Phosphatase 94 U/L (40-110); Anion Gap 11 mmol/L (10-20); BUN (Urea Nitrogen) 13 mg/dL (9.8-20.1); Bilirubin, Total 1.3 mg/dL (0.2-1.2); Calc. Creatinine Clearance 199 mL/min (70-130); Calcium 8.9 mg/dL (7.8-10.44); Carbon Dioxide 26 mmol/L (22-29); Chloride 105 mmol/L (98-107); Estimated GFR 104; Globulin 2.9 g/dL (2.4-3.5); Glucose 131 mg/dL (70-105); Potassium 3.9 mmol/L (3.5-5.1); Protein, Total 6.3 g/dL (6.0-8.3); Sodium 138 mmol/L (136-145)
[2022-07-04 08:08] LABS: Magnesium 1.8 mg/dL (1.6-2.6)
[2022-07-04] MEDS ORDERED: Sodium Chloride 0.9% 1,000 ML IV SCH (08:15)
[2022-07-04] MEDS: Transdermal Patch Removal TOP SCH (08:20)
[2022-07-04] MEDS: Aspirin 81 mg Enteric Coated Tablet PO SCH (08:47)
[2022-07-04] MEDS: Famotidine 20 MG TAB PO SCH ×2 (08:47→20:22)
[2022-07-04] MEDS: Baclofen 10 MG TAB PO SCH ×2 (08:47→20:22)
[2022-07-04] MEDS: Gabapentin 300 MG CAP PO SCH ×2 (08:48→20:22)
[2022-07-04] MEDS: Losartan 25 MG TAB PO SCH (08:48)
[2022-07-04] MEDS: Acetaminophen 325 MG TAB PO PRN ×2 (08:49→20:23)
[2022-07-04] MEDS ORDERED: Tamsulosin HCl 0.4 MG CAP PO SCH (09:00)
[2022-07-04] MEDS: Ibuprofen 600 MG TAB PO SCH ×3 (10:13→17:18)
[2022-07-04] MEDS: Albuterol 200 PUFF (6.7GM INHALER) INH PRN ×2 (10:55→17:48)
[2022-07-04] MEDS: HumaLOG 300 UNITS/3 ML VIAL SC PRN (17:19)
[2022-07-04] MEDS: Mometasone 200 MCG/Formoterol 5 MCG 120 PUFF INHALER INH SCH (17:47)
[2022-07-04] MEDS: Lidocaine 5% Patch TD SCH (22:05)
[2022-07-05] MEDS: Ibuprofen 600 MG TAB PO SCH ×5 (00:04→23:30)
[2022-07-05] MEDS: Transdermal Patch Removal TOP SCH ×2 (01:44→23:52)
[2022-07-05 07:32] LABS: ALT (SGPT) 14 U/L (8-55); AST (SGOT) 20 U/L (5-34); Albumin 3.2 g/dL (3.5-5.0); Alkaline Phosphatase 88 U/L (40-110); Anion Gap 13 mmol/L (10-20); BUN (Urea Nitrogen) 11 mg/dL (9.8-20.1); Bilirubin, Total 1.1 mg/dL (0.2-1.2); Calc. Creatinine Clearance 210 mL/min (70-130); Calcium 8.8 mg/dL (7.8-10.44); Carbon Dioxide 25 mmol/L (22-29); Chloride 105 mmol/L (98-107); Estimated GFR 105; Globulin 3.1 g/dL (2.4-3.5); Glucose 139 mg/dL (70-105); Magnesium 1.9 mg/dL (1.6-2.6); Potassium 4.6 mmol/L (3.5-5.1); Protein, Total 6.3 g/dL (6.0-8.3); Sodium 138 mmol/L (136-145)
[2022-07-05] MEDS: Aspirin 81 mg Enteric Coated Tablet PO SCH (09:05)
[2022-07-05] MEDS: Baclofen 10 MG TAB PO SCH ×2 (09:05→20:00)
[2022-07-05] MEDS: Famotidine 20 MG TAB PO SCH ×2 (09:05→20:00)
[2022-07-05] MEDS: Gabapentin 300 MG CAP PO SCH ×2 (09:05→20:00)
[2022-07-05] MEDS: Losartan 25 MG TAB PO SCH (09:06)
[2022-07-05] MEDS: Mometasone 200 MCG/Formoterol 5 MCG 120 PUFF INHALER INH SCH ×2 (09:07→19:45)
[2022-07-05 10:29] LABS: Band 3 % (5-11); Lymphocytes 17 % (21-51); MDiff Complete? YES; Mean Corpuscular Volume 96.8 fL (78.0-98.0); Mean Platelet Volume 8.5 fL (7.4-10.4); Monocytes 1 % (0-10); Neutrophil 79 % (42-75); Platelet Count 214 thou/uL (130-400); Platelet Morphology Comment Appears Adequate; RBC Distribution Width 12.5 % (11.5-14.5); RBC Morphology Normal; Red Blood Cell (RBC) Count 4.07 mill/uL (4.20-5.40); White Blood Cell (WBC) Count 8.7 thou/uL (4.8-10.8)
[2022-07-05] MEDS ORDERED: ALPRAZolam 0.25 MG TAB PO PRN (12:10)
[2022-07-05] MEDS ORDERED: predniSONE 20 MG TAB PO SCH (12:15)
[2022-07-05] MEDS: Lidocaine 5% Patch TD SCH (16:52)
[2022-07-05] MEDS: Acetaminophen 325 MG TAB PO PRN (17:05)
[2022-07-05] MEDS: HumaLOG 300 UNITS/3 ML VIAL SC PRN (17:47)
[2022-07-06] MEDS: Ibuprofen 600 MG TAB PO SCH ×4 (03:42→23:47)
[2022-07-06 06:46] LABS: #Eosinphils 0.1 thou/uL (0.0-0.7); #Lymphocytes 2.7 thou/uL (1.20-3.40); #Monocytes 0.8 thou/uL (0.11-0.59); #Neutrophils 7.9 thou/uL (1.40-6.50); %Basophils 0.4 % (0.0-1.0); %Eosinophils 0.8 % (0.0-10.0); %Lymphocytes 23.2 % (21.0-51.0); %Monocytes 6.7 % (0.0-10.0); %Neutrophils 68.9 % (42.0-75.0); Hemoglobin 13.3 g/dL (12.0-16.0); Mean Corpuscular HGB CONC 32.2 g/dL (32.0-36.0); Mean Corpuscular Hemoglobin 31.4 pg (27.0-31.0); Mean Corpuscular Volume 97.6 fL (78.0-98.0); Mean Platelet Volume 8.3 fL (7.4-10.4); Platelet Count 230 thou/uL (130-400); RBC Distribution Width 12.5 % (11.5-14.5); Red Blood Cell (RBC) Count 4.23 mill/uL (4.20-5.40); White Blood Cell (WBC) Count 11.4 thou/uL (4.8-10.8)
[2022-07-06 07:07] LABS: ALT (SGPT) 15 U/L (8-55); AST (SGOT) 15 U/L (5-34); Albumin 3.4 g/dL (3.5-5.0); Alkaline Phosphatase 89 U/L (40-110); Anion Gap 14 mmol/L (10-20); BUN (Urea Nitrogen) 10 mg/dL (9.8-20.1); Calc. Creatinine Clearance 210 mL/min (70-130); Carbon Dioxide 24 mmol/L (22-29); Chloride 106 mmol/L (98-107); Estimated GFR 105; Glucose 125 mg/dL (70-105); Magnesium 1.9 mg/dL (1.6-2.6); Potassium 3.8 mmol/L (3.5-5.1); Protein, Total 6.4 g/dL (6.0-8.3); Sodium 140 mmol/L (136-145)
[2022-07-06] MEDS: Aspirin 81 mg Enteric Coated Tablet PO SCH (08:50)
[2022-07-06] MEDS: Mometasone 200 MCG/Formoterol 5 MCG 120 PUFF INHALER INH SCH ×2 (08:51→21:42)
[2022-07-06] MEDS: Baclofen 10 MG TAB PO SCH ×2 (08:51→20:06)
[2022-07-06] MEDS: Losartan 25 MG TAB PO SCH (08:51)
[2022-07-06] MEDS: Famotidine 20 MG TAB PO SCH ×2 (08:51→20:05)
[2022-07-06] MEDS: Gabapentin 300 MG CAP PO SCH ×2 (08:51→20:05)
[2022-07-06] MEDS: predniSONE 20 MG TAB PO SCH (08:51)
[2022-07-06] MEDS ORDERED: Montelukast Sodium 10 mg Tablet PO SCH (10:15)
[2022-07-06] MEDS: Lidocaine 5% Patch TD SCH (15:43)
[2022-07-06] MEDS: HumaLOG 300 UNITS/3 ML VIAL SC PRN (18:13)
[2022-07-06] MEDS: Enoxaparin Sodium 40 MG/0.4 ML SYRINGE SC SCH (20:04)
[2022-07-06] MEDS: Montelukast Sodium 10 mg Tablet PO SCH (20:06)
[2022-07-07] MEDS: Transdermal Patch Removal TOP SCH (02:56)
[2022-07-07] MEDS: Ibuprofen 600 MG TAB PO SCH (05:57)
[2022-07-07 06:30] LABS: #Eosinphils 0.2 thou/uL (0.0-0.7); #Lymphocytes 3.2 thou/uL (1.20-3.40); #Monocytes 0.9 thou/uL (0.11-0.59); #Neutrophils 8.8 thou/uL (1.40-6.50); %Basophils 0.2 % (0.0-1.0); %Eosinophils 1.2 % (0.0-10.0); %Lymphocytes 24.7 % (21.0-51.0); %Monocytes 6.7 % (0.0-10.0); %Neutrophils 67.2 % (42.0-75.0); Hemoglobin 13.1 g/dL (12.0-16.0); Mean Corpuscular Hemoglobin 31.2 pg (27.0-31.0); Mean Corpuscular Volume 97.5 fL (78.0-98.0); Mean Platelet Volume 8.5 fL (7.4-10.4); Platelet Count 229 thou/uL (130-400); RBC Distribution Width 12.6 % (11.5-14.5); White Blood Cell (WBC) Count 13.1 thou/uL (4.8-10.8)
[2022-07-07] MEDS: Mometasone 200 MCG/Formoterol 5 MCG 120 PUFF INHALER INH SCH ×2 (06:45→19:30)
[2022-07-07 06:47] LABS: ALT (SGPT) 15 U/L (8-55); AST (SGOT) 13 U/L (5-34); Albumin 3.5 g/dL (3.5-5.0); Alkaline Phosphatase 85 U/L (40-110); Anion Gap 16 mmol/L (10-20); BUN (Urea Nitrogen) 11 mg/dL (9.8-20.1); Bilirubin, Total 1.3 mg/dL (0.2-1.2); Calc. Creatinine Clearance 187 mL/min (70-130); Carbon Dioxide 21 mmol/L (22-29); Chloride 106 mmol/L (98-107); Estimated GFR 102; Globulin 2.8 g/dL (2.4-3.5); Glucose 124 mg/dL (70-105); Magnesium 1.8 mg/dL (1.6-2.6); Potassium 3.6 mmol/L (3.5-5.1); Protein, Total 6.3 g/dL (6.0-8.3); Sodium 139 mmol/L (136-145)
[2022-07-07] MEDS: Aspirin 81 mg Enteric Coated Tablet PO SCH (08:46)
[2022-07-07] MEDS: Famotidine 20 MG TAB PO SCH ×2 (08:46→21:03)
[2022-07-07] MEDS: Gabapentin 300 MG CAP PO SCH ×2 (08:46→21:04)
[2022-07-07] MEDS: predniSONE 20 MG TAB PO SCH (08:46)
[2022-07-07] MEDS: Losartan 25 MG TAB PO SCH (08:47)
[2022-07-07] MEDS: Baclofen 10 MG TAB PO SCH ×2 (08:47→21:03)
[2022-07-07] MEDS ORDERED: Ibuprofen 600 MG TAB PO SCH (08:57)
[2022-07-07] MEDS: Ibuprofen 200 MG TAB PO SCH ×2 (14:21→18:10)
[2022-07-07] MEDS: Lidocaine 5% Patch TD SCH (18:10)
[2022-07-07] MEDS: Montelukast Sodium 10 mg Tablet PO SCH (21:03)
[2022-07-07] MEDS: Enoxaparin Sodium 40 MG/0.4 ML SYRINGE SC SCH (21:03)
[2022-07-08] MEDS: Ibuprofen 200 MG TAB PO SCH ×4 (00:30→17:27)
[2022-07-08] MEDS: Transdermal Patch Removal TOP SCH (05:23)
[2022-07-08] MEDS: Mometasone 200 MCG/Formoterol 5 MCG 120 PUFF INHALER INH SCH ×2 (05:23→17:29)
[2022-07-08 07:02] LABS: #Eosinphils 0.1 thou/uL (0.0-0.7); #Lymphocytes 3.1 thou/uL (1.20-3.40); #Monocytes 0.7 thou/uL (0.11-0.59); #Neutrophils 7.5 thou/uL (1.40-6.50); %Basophils 0.3 % (0.0-1.0); %Eosinophils 0.6 % (0.0-10.0); %Lymphocytes 27.4 % (21.0-51.0); %Monocytes 6.4 % (0.0-10.0); %Neutrophils 65.2 % (42.0-75.0); Hemoglobin 13.6 g/dL (12.0-16.0); Mean Corpuscular HGB CONC 31.3 g/dL (32.0-36.0); Mean Corpuscular Hemoglobin 30.4 pg (27.0-31.0); Mean Platelet Volume 8.8 fL (7.4-10.4); Platelet Count 207 thou/uL (130-400); RBC Distribution Width 12.7 % (11.5-14.5); Red Blood Cell (RBC) Count 4.48 mill/uL (4.20-5.40); White Blood Cell (WBC) Count 11.4 thou/uL (4.8-10.8)
[2022-07-08 07:50] LABS: ALT (SGPT) 13 U/L (8-55); AST (SGOT) 11 U/L (5-34); Albumin 3.5 g/dL (3.5-5.0); Alkaline Phosphatase 85 U/L (40-110); Anion Gap 12 mmol/L (10-20); BUN (Urea Nitrogen) 12 mg/dL (9.8-20.1); Calc. Creatinine Clearance 182 mL/min (70-130); Calcium 8.9 mg/dL (7.8-10.44); Carbon Dioxide 27 mmol/L (22-29); Chloride 105 mmol/L (98-107); Estimated GFR 101; Globulin 3.1 g/dL (2.4-3.5); Glucose 129 mg/dL (70-105); Magnesium 1.9 mg/dL (1.6-2.6); Potassium 3.5 mmol/L (3.5-5.1); Protein, Total 6.6 g/dL (6.0-8.3); Sodium 140 mmol/L (136-145)
[2022-07-08] MEDS: Losartan 25 MG TAB PO SCH (09:08)
[2022-07-08] MEDS: Aspirin 81 mg Enteric Coated Tablet PO SCH (09:08)
[2022-07-08] MEDS: predniSONE 20 MG TAB PO SCH (09:08)
[2022-07-08] MEDS: Gabapentin 300 MG CAP PO SCH ×2 (09:09→20:02)
[2022-07-08] MEDS: Baclofen 10 MG TAB PO SCH ×2 (09:09→20:03)
[2022-07-08] MEDS: Famotidine 20 MG TAB PO SCH ×2 (09:10→20:02)
[2022-07-08] MEDS: Lidocaine 5% Patch TD SCH (15:37)
[2022-07-08] MEDS: HumaLOG 300 UNITS/3 ML VIAL SC PRN ×2 (17:28→20:01)
[2022-07-08] MEDS: Montelukast Sodium 10 mg Tablet PO SCH (20:02)
[2022-07-08] MEDS: Docusate 100 MG CAP PO SCH (20:03)
[2022-07-08] MEDS: Enoxaparin Sodium 40 MG/0.4 ML SYRINGE SC SCH (20:04)
[2022-07-09] MEDS ORDERED: Cepastat Lozenges 1 LOZ PO PRN (00:01)
[2022-07-09] MEDS: Ibuprofen 200 MG TAB PO SCH ×4 (00:30→18:14)
[2022-07-09] MEDS: Transdermal Patch Removal TOP SCH (03:00)
[2022-07-09] MEDS: Mometasone 200 MCG/Formoterol 5 MCG 120 PUFF INHALER INH SCH ×2 (05:16→18:20)
[2022-07-09 07:32] LABS: Magnesium 1.8 mg/dL (1.6-2.6)
[2022-07-09] MEDS: Baclofen 10 MG TAB PO SCH (08:37)
[2022-07-09] MEDS: predniSONE 20 MG TAB PO SCH (08:37)
[2022-07-09] MEDS: Losartan 25 MG TAB PO SCH (08:38)
[2022-07-09] MEDS: Gabapentin 300 MG CAP PO SCH (08:38)
[2022-07-09] MEDS: Docusate 100 MG CAP PO SCH (08:38)
[2022-07-09] MEDS: Famotidine 20 MG TAB PO SCH (08:39)
[2022-07-09] MEDS: Aspirin 81 mg Enteric Coated Tablet PO SCH (08:40)
[2022-07-09] MEDS: HumaLOG 300 UNITS/3 ML VIAL SC PRN ×2 (13:24→16:43)
[2022-07-09] MEDS: Acetaminophen 325 MG TAB PO PRN (13:30)
[2022-07-09] MEDS: Lidocaine 5% Patch TD SCH (16:45)
[2022-07-09 17:40] VITALS: BP 123/78; TEMP 98.7
== END 2022-07-09 18:24 | disposition home or self-care (01) | DRG 178 ==
LOC: SUATTDRO 06:33 → ERS 06:33 → 2NO 12:41 → OBSVTOIN 07-03 09:32 → T4-A 07-04 21:47
PROVIDERS: ADMIT Family Medicine; ATTEND Internal Medicine
PROC: 8E0ZXY6 Isolation (ICD-10-PCS; principal; 2022-07-03)
DX: U07.1 COVID-19 (principal); Z68.42 Body mass index [BMI] 45.0-49.9, adult; I10 Essential (primary) hypertension; E78.5 Hyperlipidemia, unspecified; E11.9 Type 2 diabetes mellitus without complications; K21.9 Gastro-esophageal reflux disease without esophagitis; D64.9 Anemia, unspecified; K46.9 Unspecified abdominal hernia without obstruction or gangrene; R53.81 Other malaise; E66.01 Morbid (severe) obesity due to excess calories; I44.7 Left bundle-branch block, unspecified; N20.0 Calculus of kidney; R19.7 Diarrhea, unspecified; J44.9 Chronic obstructive pulmonary disease, unspecified; Z87.01 Personal history of pneumonia (recurrent); Z90.49 Acquired absence of other specified parts of digestive tract; Z98.51 Tubal ligation status; Z79.899 Other long term (current) drug therapy; Z79.52 Long term (current) use of systemic steroids; Z79.82 Long term (current) use of aspirin
CPT/HCPCS: 36415; 36416; 71275; 72128; 74177; 74230; 76705; 80053; 80061; 80306; 81001; 83036; 83735; 83880; 84484; 85025; 85379; 86140; 86850; 86900; 86901; 93005; 93010; 93306; 96372; 96374; 96375; 96376; G0378; J1650; J1815; J1885; J2270; J2405; J7050; J7512; Q0162; Q9967; U0003; U0005

== ENCOUNTER 2022-10-11 19:02 | Emergency (ER) | payer BC, SELFPAY ==
[2022-10-11] MEDS ORDERED: Ibuprofen 800 MG TAB ONE (19:23)
[2022-10-11] MEDS ORDERED: HYDROcodone/Acetaminophen 5/325 mg Tablet ONE (20:33)
== END 2022-10-11 20:34 | disposition home or self-care (01) ==
LOC: ERS 19:02
DX: S52.612A Displaced fracture of left ulna styloid process, initial encounter for closed fracture (principal); S80.01XA Contusion of right knee, initial encounter; W18.30XA Fall on same level, unspecified, initial encounter
CPT/HCPCS: 25650

== ENCOUNTER 2022-11-26 14:26 | Outpatient (CLI) | payer BC | END 2022-11-26 14:27 | disposition home or self-care (01) | LOC: TBSIIMAG 14:26 | PROVIDERS: ATTEND Orthopaedic Surgery Hand Surgery | DX: S63.592A Other specified sprain of left wrist, initial encounter (principal); M77.12 Lateral epicondylitis, left elbow; M67.922 Unspecified disorder of synovium and tendon, left upper arm; S52.592A Other fractures of lower end of left radius, initial encounter for closed fracture; S52.612A Displaced fracture of left ulna styloid process, initial encounter for closed fracture ==

== ENCOUNTER 2023-01-09 14:13 | Outpatient (CLI) | payer BC ==
[2023-01-09 14:55] LABS: #Basophils 0.1 10x3/uL (0.0-0.2); #Eosinphils 0.1 10x3/uL (0.0-0.5); #Monocytes 0.8 10x3/uL (0.0-1.1); #Neutrophils 8.4 10x3/uL (1.5-8.4); %Basophils 0.6 % (0.0-2.0); %Eosinophils 1.1 % (0.0-6.0); %Lymphocytes 23.4 % (18.0-47.0); %Monocytes 6.6 % (0.0-10.0); %Neutrophils 67.4 % (40.0-75.0); Hemoglobin 13.6 g/dL (12.0-15.5); Mean Corpuscular HGB CONC 31.5 g/dL (32.0-36.0); Mean Corpuscular Hemoglobin 30.3 pg (27.0-33.0); Mean Corpuscular Volume 96.2 fl (81.6-98.3); Mean Platelet Volume 10.7 fl (7.4-10.4); Platelet Count 277 10x3/uL (150-450); RBC Distribution Width 12.8 % (11.5-14.5); Red Blood Cell (RBC) Count 4.49 10x6/uL (3.90-5.03); White Blood Cell (WBC) Count 12.4 10x3/uL (3.5-10.5)
[2023-01-09 15:11] LABS: Anion Gap 17 mmol/L (10-20); BUN (Urea Nitrogen) 17 mg/dL (9.8-20.1); Calc. Creatinine Clearance 0 mL/min (70-130); Carbon Dioxide 23 mmol/L (22-29); Chloride 105 mmol/L (98-107); Estimated GFR 102; Glucose 175 mg/dL (70-105); Potassium 4.5 mmol/L (3.5-5.1); Sodium 140 mmol/L (136-145)
== END 2023-01-09 14:14 | disposition home or self-care (01) ==
LOC: LABBT 14:13
PROVIDERS: ATTEND Orthopaedic Surgery Hand Surgery
DX: Z01.812 Encounter for preprocedural laboratory examination (principal); S62.102A Fracture of unspecified carpal bone, left wrist, initial encounter for closed fracture
CPT/HCPCS: 80048; 85025

== ENCOUNTER 2023-02-03 09:04 | Day surgery (SDC) | payer BC, OTHER ==
[2023-01-12 11:48] VITALS: BMI 53.6
[2023-02-03] MEDS ORDERED: Neomycin-Polymyxin 1 ML AMP ONE (10:11)
[2023-02-03] MEDS ORDERED: Bupivacaine PF 0.5% 30 ML VIAL ONE (10:11)
[2023-02-03] MEDS ORDERED: Bacitracin Zinc Ointment 30 gm TUBE ONE (10:11)
[2023-02-03] MEDS ORDERED: fentaNYL 50 mcg/mL 1 mL Vial ONE ×2 (10:12→11:35)
[2023-02-03] MEDS ORDERED: Ropivacaine 0.5% HCl/PF (150 MG/30 ML VIAL) ONE (10:12)
[2023-02-03] MEDS ORDERED: Midazolam HCl 2 mg/2 ml Vial ONE (10:12)
[2023-02-03] MEDS ORDERED: CEFAZOLIN 2 GM VIAL ONE (11:24)
[2023-02-03] MEDS ORDERED: Sodium Chloride 0.9% 100 ML ONE (11:24)
[2023-02-03] MEDS ORDERED: PROPOFOL 20 ML ONE (11:35)
[2023-02-03] MEDS ORDERED: Ondansetron PF 4 MG/2 ML Vial ONE (11:58)
[2023-02-03] MEDS ORDERED: Dexamethasone 20 MG/5 ML VIAL ONE (11:58)
[2023-02-03] MEDS ORDERED: Lidocaine 1% PF 5 ML VIAL ONE (11:58)
[2023-02-03] MEDS ORDERED: Ketorolac Tromethamine 30 MG/ML VIAL ONE (11:58)
[2023-02-03] MEDS ORDERED: PROPOFOL 200 MG/20 ML VIAL ONE (11:58)
[2023-02-03] MEDS ORDERED: ePHEDrine Sulfate 50 MG/10 ML VIAL ONE (11:58)
[2023-02-03] MEDS ORDERED: Sevoflurane 250 ML INH ANEST BOTTLE ONE (14:34)
== END 2023-02-03 16:15 | disposition home or self-care (01) ==
LOC: SDC 09:04
PROVIDERS: ATTEND Orthopaedic Surgery Hand Surgery
DX: S52.592A Other fractures of lower end of left radius, initial encounter for closed fracture (principal); G56.02 Carpal tunnel syndrome, left upper limb; M25.832 Other specified joint disorders, left wrist; J45.909 Unspecified asthma, uncomplicated; K21.9 Gastro-esophageal reflux disease without esophagitis; E66.01 Morbid (severe) obesity due to excess calories; Z68.43 Body mass index [BMI] 50.0-59.9, adult; Z86.16 Personal history of COVID-19; Z79.84 Long term (current) use of oral hypoglycemic drugs; Z79.899 Other long term (current) drug therapy; Z88.5 Allergy status to narcotic agent; W19.XXXA Unspecified fall, initial encounter; Y92.481 Parking lot as the place of occurrence of the external cause
CPT/HCPCS: C1713; C1894; J1100; J1885; J2250; J2405; J2704; J2795; J3010; J3490; S0020

== ENCOUNTER 2023-02-07 02:39 | Emergency (ER) | payer BC ==
[2023-02-07] MEDS ORDERED: diphenhydrAMINE 25 MG CAP ONE (03:04)
== END 2023-02-07 03:18 | disposition home or self-care (01) ==
LOC: ERS 02:39
DX: T78.40XA Allergy, unspecified, initial encounter (principal); J44.9 Chronic obstructive pulmonary disease, unspecified
CPT/HCPCS: 99283

== ENCOUNTER 2023-09-29 18:50 | Inpatient (IN) | payer BC, SELFPAY ==
[~2023-09-29 18:50] MED LIST changes: -ISOVUE-370 76%-LOCM 1 ML ONE; +Iopamidol-370 76% 500 ML MDV (1 ML CHARGE) ONE
[2023-09-29] MEDS ORDERED: Ipratropium/Albuterol 3 ML NEB ONE ×3 (19:29→23:18)
[2023-09-29] MEDS ORDERED: Magnesium 2 GM/50 ML BAG (IN WATER) ONE (19:33)
[2023-09-29] MEDS ORDERED: predniSONE 20 MG TAB ONE (19:33)
[2023-09-29] MEDS ORDERED: cefTRIAXone (ROCEPHIN) 2 GM VIAL ONE (19:33)
[2023-09-29] MEDS ORDERED: Azithromycin 500 MG VIAL ONE (19:34)
[2023-09-29] MEDS ORDERED: Sodium Chloride 0.9% 100 ML ONE (19:34)
[2023-09-29 19:44] LABS: Actual Bicarbonate (HCO3v) 22.3 mEq/L (22-28); Analyzer IN Cardio ER; Calcium, Ionized (venous) 1.08 mmol/L (1.16-1.32); Chloride (VBG) 99 mmol/L (98-106); Hematocrit-VBG 44 % (36.0-47.0); Potassium (VBG) 4.25 mmol/L (3.70-5.30); Sodium 139 mmol/L (133-146); pH (venous) 7.487 (7.32-7.43)
[2023-09-29 19:47] LABS: #Eosinphils 0.2 thou/uL (0.0-0.7); #Monocytes 0.7 thou/uL (0.11-0.59); #Neutrophils 6.1 thou/uL (1.40-6.50); %Basophils 0.5 % (0.0-1.0); %Eosinophils 2.1 % (0.0-10.0); %Lymphocytes 17.8 % (21.0-51.0); %Monocytes 8.2 % (0.0-10.0); %Neutrophils 71.1 % (42.0-75.0); Hemoglobin 13.9 g/dL (12.0-16.0); Mean Corpuscular HGB CONC 33.1 g/dL (32.0-36.0); Mean Corpuscular Hemoglobin 31.2 pg (27.0-31.0); Mean Corpuscular Volume 94.2 fl (78.0-98.0); Mean Platelet Volume 10.7 fL (7.4-10.4); Platelet Count 216 10x3/uL (130-400); RBC Distribution Width 12.3 % (11.5-14.5); Red Blood Cell (RBC) Count 4.46 mill/uL (4.20-5.40); White Blood Cell (WBC) Count 8.6 10x3/uL (4.8-10.8)
[2023-09-29 20:12] LABS: ALT (SGPT) 8 U/L (8-55); AST (SGOT) 12 U/L (5-34); Albumin 3.6 g/dL (3.5-5.0); Alkaline Phosphatase 118 U/L (40-110); Anion Gap 17 mmol/L (10-20); BUN (Urea Nitrogen) 8 mg/dL (9.8-20.1); Bilirubin, Total 0.6 mg/dL (0.2-1.2); Calc. Creatinine Clearance 0 mL/min (70-130); Calcium 9.1 mg/dL (7.8-10.44); Carbon Dioxide 20 mmol/L (22-29); Chloride 101 mmol/L (98-107); Estimated GFR 89; Globulin 3.5 g/dL (2.4-3.5); Glucose 294 mg/dL (70-105); Potassium 3.7 mmol/L (3.5-5.1); Protein, Total 7.1 g/dL (6.0-8.3); Sodium 134 mmol/L (136-145)
[2023-09-29 20:16] LABS: Troponin I Less than 0.010 ng/mL (< 0.028)
[2023-09-29 20:55] LABS: SARS-CoV-2 NAA Rapid Test Not Detected (NotDetected)
[2023-09-29 22:57] LABS: Lactic Acid 1.9 mmol/L (0.5-2.2)
[2023-09-29] MEDS ORDERED: Ondansetron ODT 4 MG TAB SL PRN (23:00)
[2023-09-29] MEDS ORDERED: Acetaminophen 325 MG TAB PO PRN (23:00)
[2023-09-29] MEDS ORDERED: Furosemide 40 MG/4 ML VIAL ONE (23:04)
[2023-09-29] MEDS ORDERED: Ipratropium/Albuterol 3 ML NEB EZPAP PRN (23:11)
[2023-09-29] MEDS ORDERED: Glucagon 1 MG/ML KIT IM PRN (23:15)
[2023-09-29] MEDS ORDERED: Dextrose 50% Abboject 50 ML SYRINGE SLOW IVP PRN (23:15)
[2023-09-29] MEDS ORDERED: Dextrose 5% in Water 1,000 ML IV PRN (23:15)
[2023-09-29] MEDS ORDERED: HumaLOG 300 UNITS/3 ML VIAL SC PRN (23:15)
[2023-09-30 00:19] VITALS: BMI 57.0
[2023-09-30] MEDS: methylPREDNISolone Sod Succ 40 MG VIAL IVP SCH ×4 (00:40→17:17)
[2023-09-30 00:52] LABS: INR-International Normal Ratio 1.1; Prothrombin Time 14.1 sec (12.0-14.7)
[2023-09-30] MEDS: HumaLOG 300 UNITS/3 ML VIAL SC PRN ×5 (01:19→20:53)
[2023-09-30] MEDS: Ipratropium/Albuterol 3 ML NEB EZPAP PRN ×2 (03:14→17:11)
[2023-09-30] MEDS: Benzonatate 100 MG CAP PO PRN ×2 (05:06→07:54)
[2023-09-30 06:25] LABS: #Monocytes 0.1 thou/uL (0.11-0.59); #Neutrophils 8.8 thou/uL (1.40-6.50); %Basophils 0.1 % (0.0-1.0); %Monocytes 0.7 % (0.0-10.0); %Neutrophils 93.9 % (42.0-75.0); Hematocrit 42.1 % (36.0-47.0); Hemoglobin 13.9 g/dL (12.0-16.0); Mean Corpuscular Hemoglobin 31.2 pg (27.0-31.0); Mean Corpuscular Volume 94.4 fl (78.0-98.0); Mean Platelet Volume 10.4 fL (7.4-10.4); Platelet Count 242 10x3/uL (130-400); RBC Distribution Width 12.5 % (11.5-14.5); Red Blood Cell (RBC) Count 4.46 mill/uL (4.20-5.40); White Blood Cell (WBC) Count 9.4 10x3/uL (4.8-10.8)
[2023-09-30 06:38] LABS: Anion Gap 15 mmol/L (10-20); BUN (Urea Nitrogen) 10 mg/dL (9.8-20.1); Calc. Creatinine Clearance 162 mL/min (70-130); Calcium 8.8 mg/dL (7.8-10.44); Carbon Dioxide 23 mmol/L (22-29); Chloride 99 mmol/L (98-107); Estimated GFR 87; Potassium 3.7 mmol/L (3.5-5.1); Sodium 133 mmol/L (136-145)
[2023-09-30 06:42] LABS: Glucose 412 mg/dL (70-105)
[2023-09-30] MEDS: Famotidine/PF 20 mg/2ml Vial SLOW IVP SCH ×2 (07:54→20:47)
[2023-09-30] MEDS: Mometasone 200 MCG/Formoterol 5 MCG 120 PUFF INHALER INH SCH ×2 (08:01→19:53)
[2023-09-30] MEDS: guaiFENesin/DM ER PO SCH ×2 (08:30→20:47)
[2023-09-30] MEDS: Ondansetron PF 4 MG/2 ML Vial IVP PRN ×2 (09:19→18:03)
[2023-09-30] MEDS ORDERED: cefTRIAXone\\ROCEPHIN 2 GM in Sodium Chloride 0.9% 100 ML IVPB SCH (20:00)
[2023-09-30] MEDS: Acetaminophen 325 MG TAB PO PRN (20:45)
[2023-09-30] MEDS: Melatonin 3 MG TAB PO PRN (20:45)
[2023-09-30] MEDS: Montelukast Sodium 10 mg Tablet PO SCH (20:47)
[2023-09-30] MEDS ORDERED: Azithromycin 500 MG in Sodium Chloride 0.9% 250 ML 250 ML IVPB SCH (22:00)
[2023-10-01] MEDS: methylPREDNISolone Sod Succ 40 MG VIAL IVP SCH ×4 (00:39→21:29)
[2023-10-01] MEDS: Benzonatate 100 MG CAP PO PRN ×3 (00:48→21:30)
[2023-10-01] MEDS: Ipratropium/Albuterol 3 ML NEB EZPAP PRN ×3 (01:17→19:42)
[2023-10-01] MEDS: HumaLOG 300 UNITS/3 ML VIAL SC PRN ×3 (06:50→19:04)
[2023-10-01] MEDS: Famotidine/PF 20 mg/2ml Vial SLOW IVP SCH (07:44)
[2023-10-01] MEDS: guaiFENesin/DM ER PO SCH ×2 (07:45→21:29)
[2023-10-01] MEDS: Mometasone 200 MCG/Formoterol 5 MCG 120 PUFF INHALER INH SCH ×2 (07:58→19:32)
[2023-10-01 08:35] LABS: #Monocytes 0.2 thou/uL (0.11-0.59); #Neutrophils 12.1 thou/uL (1.40-6.50); %Basophils 0.2 % (0.0-1.0); %Lymphocytes 6.3 % (21.0-51.0); %Monocytes 1.7 % (0.0-10.0); %Neutrophils 91.3 % (42.0-75.0); Hematocrit 44.5 % (36.0-47.0); Hemoglobin 14.4 g/dL (12.0-16.0); Mean Corpuscular HGB CONC 32.4 g/dL (32.0-36.0); Mean Corpuscular Volume 95.7 fl (78.0-98.0); Mean Platelet Volume 10.5 fL (7.4-10.4); Platelet Count 244 10x3/uL (130-400); RBC Distribution Width 12.5 % (11.5-14.5); Red Blood Cell (RBC) Count 4.65 mill/uL (4.20-5.40); White Blood Cell (WBC) Count 13.3 10x3/uL (4.8-10.8)
[2023-10-01 08:45] LABS: Hemoglobin A1c 8.7 % (4.0-6.0)
[2023-10-01 08:54] LABS: Anion Gap 14 mmol/L (10-20); BUN (Urea Nitrogen) 15 mg/dL (9.8-20.1); Calc. Creatinine Clearance 169 mL/min (70-130); Calcium 8.9 mg/dL (7.8-10.44); Carbon Dioxide 22 mmol/L (22-29); Chloride 102 mmol/L (98-107); Estimated GFR 92; Glucose 381 mg/dL (70-105); Potassium 3.9 mmol/L (3.5-5.1); Sodium 134 mmol/L (136-145)
[2023-10-01 09:05] LABS: DRVVT Confirm 31.2
[2023-10-01 13:36] LABS: ANA Symphony (Qualitative) Negative (Negative); ANA Symphony (Quantitative) 0.2 Ratio (< 0.7 Negative); dsDNA IgG Antibody 0.8 IU/mL (<10 Negative)
[2023-10-01] MEDS: Acetaminophen 325 MG TAB PO PRN ×2 (14:20→21:31)
[2023-10-01] MEDS ORDERED: metFORMIN 500 MG TAB PO SCH (18:00)
[2023-10-01] MEDS: Famotidine 20 MG TAB PO SCH (21:28)
[2023-10-01] MEDS: Montelukast Sodium 10 mg Tablet PO SCH (21:29)
[2023-10-01] MEDS: Melatonin 3 MG TAB PO PRN (21:31)
[2023-10-01] MEDS: Ondansetron PF 4 MG/2 ML Vial IVP PRN (21:31)
[2023-10-02] MEDS: Ipratropium/Albuterol 3 ML NEB EZPAP PRN ×3 (00:06→06:57)
[2023-10-02] MEDS: HumaLOG 300 UNITS/3 ML VIAL SC PRN ×6 (01:37→23:26)
[2023-10-02] MEDS: Fioricet 325/50/40 mg Tablet PO PRN ×2 (03:27→18:17)
[2023-10-02] MEDS: Benzocaine/Menthol 1 LOZ LOZ PO PRN ×5 (06:31→23:12)
[2023-10-02 06:32] LABS: #Monocytes 0.6 thou/uL (0.11-0.59); %Basophils 0.1 % (0.0-1.0); %Lymphocytes 3.2 % (21.0-51.0); %Monocytes 3.4 % (0.0-10.0); %Neutrophils 92.6 % (42.0-75.0); Mean Corpuscular HGB CONC 31.8 g/dL (32.0-36.0); Mean Corpuscular Hemoglobin 30.6 pg (27.0-31.0); Mean Corpuscular Volume 96.3 fl (78.0-98.0); Mean Platelet Volume 10.4 fL (7.4-10.4); Platelet Count 298 10x3/uL (130-400); RBC Distribution Width 12.6 % (11.5-14.5); Red Blood Cell (RBC) Count 4.57 mill/uL (4.20-5.40); White Blood Cell (WBC) Count 18.3 10x3/uL (4.8-10.8)
[2023-10-02 06:59] LABS: Anion Gap 15 mmol/L (10-20); BUN (Urea Nitrogen) 19 mg/dL (9.8-20.1); Calc. Creatinine Clearance 153 mL/min (70-130); Calcium 9.1 mg/dL (7.8-10.44); Carbon Dioxide 24 mmol/L (22-29); Chloride 100 mmol/L (98-107); Estimated GFR 81; Potassium 4.4 mmol/L (3.5-5.1); Sodium 135 mmol/L (136-145)
[2023-10-02] MEDS: Mometasone 200 MCG/Formoterol 5 MCG 120 PUFF INHALER INH SCH ×2 (07:00→18:42)
[2023-10-02 07:20] LABS: Glucose 423 mg/dL (70-105)
[2023-10-02] MEDS: glipiZIDE 5 MG TAB PO SCH ×2 (07:49→16:24)
[2023-10-02] MEDS ORDERED: traMADol HCl 50 MG TAB PO SCH (08:45)
[2023-10-02] MEDS: Famotidine 20 MG TAB PO SCH ×2 (09:31→23:08)
[2023-10-02] MEDS: Aluminum & Magnesium Hydroxide 60 ML, Lidocaine 2% Viscous Solution 30 ML, diphenhydrAM... SSW PRN (09:32)
[2023-10-02] MEDS: metFORMIN 500 MG TAB PO SCH ×2 (09:32→16:24)
[2023-10-02] MEDS: guaiFENesin/DM ER PO SCH ×2 (09:34→23:08)
[2023-10-02] MEDS: methylPREDNISolone Sod Succ 40 MG VIAL IVP SCH (09:34)
[2023-10-02] MEDS: Ondansetron PF 4 MG/2 ML Vial IVP PRN (09:40)
[2023-10-02] MEDS: Ipratropium/Albuterol 3 ML NEB EZPAP SCH ×4 (09:51→22:31)
[2023-10-02] MEDS ORDERED: predniSONE 20 MG TAB PO SCH (12:00)
[2023-10-02] MEDS: traMADol HCl 50 MG TAB PO PRN (23:09)
[2023-10-02] MEDS: Temazepam 15 MG CAP PO SCH (23:10)
[2023-10-02] MEDS: Montelukast Sodium 10 mg Tablet PO SCH (23:10)
[2023-10-02] MEDS: Benzonatate 100 MG CAP PO PRN (23:16)
[2023-10-03] MEDS: Aluminum & Magnesium Hydroxide 60 ML, Lidocaine 2% Viscous Solution 30 ML, diphenhydrAM... SSW PRN (01:03)
[2023-10-03] MEDS: Benzocaine/Menthol 1 LOZ LOZ PO PRN ×3 (01:10→17:23)
[2023-10-03] MEDS: Ipratropium/Albuterol 3 ML NEB EZPAP SCH ×5 (02:31→23:02)
[2023-10-03] MEDS ORDERED: FLU VACC QS2023-24(6MOS UP)/PF 60 MCG/0.5 ML SYRINGE IM ONE (09:00)
[2023-10-03] MEDS: glipiZIDE 5 MG TAB PO SCH ×2 (09:26→17:22)
[2023-10-03] MEDS: metFORMIN 500 MG TAB PO SCH ×2 (09:27→17:23)
[2023-10-03] MEDS: predniSONE 20 MG TAB PO SCH (09:27)
[2023-10-03] MEDS: Famotidine 20 MG TAB PO SCH ×2 (09:30→22:16)
[2023-10-03] MEDS: guaiFENesin/DM ER PO SCH ×2 (09:30→22:16)
[2023-10-03] MEDS: Mometasone 200 MCG/Formoterol 5 MCG 120 PUFF INHALER INH SCH ×2 (11:23→18:31)
[2023-10-03] MEDS: HumaLOG 300 UNITS/3 ML VIAL SC PRN ×2 (13:27→17:23)
[2023-10-03] MEDS: traMADol HCl 50 MG TAB PO PRN (13:32)
[2023-10-03] MEDS: Temazepam 15 MG CAP PO SCH (22:16)
[2023-10-03] MEDS: Apixaban 5 MG TAB PO SCH (22:16)
[2023-10-03] MEDS: Montelukast Sodium 10 mg Tablet PO SCH (22:17)
[2023-10-03] MEDS: guaiFENesin/Codeine 200 mg/20 mg 10 ml Cup PO SCH (22:17)
[2023-10-04] MEDS: Aluminum & Magnesium Hydroxide 60 ML, Lidocaine 2% Viscous Solution 30 ML, diphenhydrAM... SSW PRN (01:58)
[2023-10-04] MEDS: Ipratropium/Albuterol 3 ML NEB EZPAP SCH ×6 (02:32→22:13)
[2023-10-04] MEDS: Mometasone 200 MCG/Formoterol 5 MCG 120 PUFF INHALER INH SCH ×2 (08:35→18:34)
[2023-10-04] MEDS: traMADol HCl 50 MG TAB PO PRN (11:13)
[2023-10-04] MEDS: metFORMIN 500 MG TAB PO SCH ×2 (11:13→17:29)
[2023-10-04] MEDS: guaiFENesin/DM ER PO SCH (11:13)
[2023-10-04] MEDS: Benzocaine/Menthol 1 LOZ LOZ PO PRN (11:14)
[2023-10-04] MEDS: Famotidine 20 MG TAB PO SCH ×2 (11:15→20:42)
[2023-10-04] MEDS: predniSONE 20 MG TAB PO SCH (11:15)
[2023-10-04] MEDS: Apixaban 5 MG TAB PO SCH ×2 (11:15→20:42)
[2023-10-04] MEDS: Fioricet 325/50/40 mg Tablet PO PRN (11:36)
[2023-10-04] MEDS: glipiZIDE 5 MG TAB PO SCH ×2 (11:38→17:29)
[2023-10-04] MEDS: HumaLOG 300 UNITS/3 ML VIAL SC PRN (17:29)
[2023-10-04] MEDS: Montelukast Sodium 10 mg Tablet PO SCH (20:42)
[2023-10-04] MEDS: Temazepam 15 MG CAP PO SCH (20:42)
[2023-10-04] MEDS: guaiFENesin/Codeine 200 mg/20 mg 10 ml Cup PO SCH (20:43)
[2023-10-05] MEDS: Melatonin 3 MG TAB PO PRN (00:45)
[2023-10-05] MEDS: traMADol HCl 50 MG TAB PO PRN ×2 (00:45→06:19)
[2023-10-05] MEDS: Ipratropium/Albuterol 3 ML NEB EZPAP SCH ×6 (02:32→22:58)
[2023-10-05] MEDS: Mometasone 200 MCG/Formoterol 5 MCG 120 PUFF INHALER INH SCH ×2 (07:15→19:48)
[2023-10-05] MEDS: Ondansetron PF 4 MG/2 ML Vial IVP PRN (08:13)
[2023-10-05] MEDS: predniSONE 20 MG TAB PO SCH (08:13)
[2023-10-05] MEDS: Famotidine 20 MG TAB PO SCH ×2 (08:13→20:47)
[2023-10-05] MEDS: Benzocaine/Menthol 1 LOZ LOZ PO PRN (08:13)
[2023-10-05] MEDS: metFORMIN 500 MG TAB PO SCH ×2 (08:13→17:34)
[2023-10-05] MEDS: Apixaban 5 MG TAB PO SCH ×2 (08:13→20:48)
[2023-10-05] MEDS: glipiZIDE 5 MG TAB PO SCH ×2 (08:13→17:34)
[2023-10-05] MEDS: Fioricet 325/50/40 mg Tablet PO PRN ×2 (08:13→20:48)
[2023-10-05] MEDS: guaiFENesin/Codeine 200 mg/20 mg 10 ml Cup PO SCH (20:48)
[2023-10-05] MEDS: Temazepam 15 MG CAP PO SCH (20:48)
[2023-10-06] MEDS ORDERED: Cyclobenzaprine 10 MG TAB PO SCH (00:45)
[2023-10-06] MEDS: Ipratropium/Albuterol 3 ML NEB EZPAP SCH ×4 (01:53→14:23)
[2023-10-06] MEDS: Fioricet 325/50/40 mg Tablet PO PRN ×2 (05:07→09:01)
[2023-10-06 05:50] LABS: #Basophils 0.1 thou/uL (0.0-0.2); #Eosinphils 0.1 thou/uL (0.0-0.7); #Neutrophils 10.4 thou/uL (1.40-6.50); %Basophils 0.3 % (0.0-1.0); %Eosinophils 0.7 % (0.0-10.0); %Lymphocytes 27.4 % (21.0-51.0); %Monocytes 6.2 % (0.0-10.0); %Neutrophils 63.3 % (42.0-75.0); Hematocrit 44.2 % (36.0-47.0); Hemoglobin 13.9 g/dL (12.0-16.0); Mean Corpuscular HGB CONC 31.4 g/dL (32.0-36.0); Mean Corpuscular Hemoglobin 30.5 pg (27.0-31.0); Mean Corpuscular Volume 97.1 fl (78.0-98.0); Mean Platelet Volume 10.3 fL (7.4-10.4); Platelet Count 310 10x3/uL (130-400); Red Blood Cell (RBC) Count 4.55 mill/uL (4.20-5.40); White Blood Cell (WBC) Count 16.5 10x3/uL (4.8-10.8)
[2023-10-06 06:15] LABS: Anion Gap 14 mmol/L (10-20); BUN (Urea Nitrogen) 10 mg/dL (9.8-20.1); Calc. Creatinine Clearance 176 mL/min (70-130); Calcium 9.1 mg/dL (7.8-10.44); Carbon Dioxide 27 mmol/L (22-29); Chloride 102 mmol/L (98-107); Estimated GFR 98; Glucose 129 mg/dL (70-105); Potassium 3.6 mmol/L (3.5-5.1); Sodium 139 mmol/L (136-145)
[2023-10-06] MEDS: Mometasone 200 MCG/Formoterol 5 MCG 120 PUFF INHALER INH SCH (07:56)
[2023-10-06] MEDS: glipiZIDE 5 MG TAB PO SCH (08:59)
[2023-10-06] MEDS: predniSONE 20 MG TAB PO SCH (09:00)
[2023-10-06] MEDS: metFORMIN 500 MG TAB PO SCH (09:00)
[2023-10-06] MEDS: Famotidine 20 MG TAB PO SCH (09:00)
[2023-10-06] MEDS: Acetaminophen 325 MG TAB PO PRN (09:00)
[2023-10-06] MEDS: Apixaban 5 MG TAB PO SCH ×2 (09:01→09:07)
[2023-10-06 12:48] VITALS: BP 141/98; TEMP 97.9
[2023-10-06] MEDS: HumaLOG 300 UNITS/3 ML VIAL SC PRN (14:45)
[2023-10-06] MEDS ORDERED: Apixaban 5 MG TAB PO SCH (21:00)
== END 2023-10-06 15:30 | disposition home or self-care (01) | DRG 175 ==
LOC: ERS 18:50 → ERHOLD 22:48 → OBSVTOIN 23:03 → IMCU/EMU 23:31 → 2NO 10-01 16:36
PROVIDERS: ADMIT Internal Medicine; ATTEND Internal Medicine
DX: I26.99 Other pulmonary embolism without acute cor pulmonale (principal); J96.01 Acute respiratory failure with hypoxia; J45.901 Unspecified asthma with (acute) exacerbation; I50.32 Chronic diastolic (congestive) heart failure; J44.1 Chronic obstructive pulmonary disease with (acute) exacerbation; E87.20 Acidosis, unspecified; Z68.43 Body mass index [BMI] 50.0-59.9, adult; E66.01 Morbid (severe) obesity due to excess calories; I11.0 Hypertensive heart disease with heart failure; E11.65 Type 2 diabetes mellitus with hyperglycemia; E78.5 Hyperlipidemia, unspecified; Z79.51 Long term (current) use of inhaled steroids; Z79.899 Other long term (current) drug therapy; Z79.84 Long term (current) use of oral hypoglycemic drugs; Z91.148 Patient's other noncompliance with medication regimen for other reason; Z98.51 Tubal ligation status; Z90.49 Acquired absence of other specified parts of digestive tract; Z98.890 Other specified postprocedural states; Z88.8 Allergy status to other drugs, medicaments and biological substances; Z11.52 Encounter for screening for COVID-19
CPT/HCPCS: 36415; 36416; 71045; 71275; 80048; 80053; 81241; 82805; 83036; 83605; 83880; 84484; 85025; 85379; 85610; 85613; 85730; 86038; 86225; 87040; 93005; 93306; 93970; 94640; 96365; 96367; 96372; 96375; J0456; J0696; J1650; J1815; J1940; J2405; J2920; J3475; J3490; J7512; J7620; Q0163; Q9967; S0028

== ENCOUNTER 2023-12-29 18:37 | Inpatient (IN) | payer SELFPAY ==
[2023-12-29 19:31] LABS: Bacteria/HPF 1+ HPF (None Seen); Bilirubin Negative (Negative); Blood, Urine 2+ (Negative); CAUTI Indications for Culture Dysuria,urgency,freq; Clarity Extra Turbid (Clear); Glucose, Urine (Dipstick) 30 mg/dL (Negative); Ketone, Urine Negative (Negative); Leukocyte 500 Leu/uL (Negative); Nitrite Negative (Negative); Protein, Urine (Dipstick) 200 mg/dL (Neg-Trace); Specific Gravity, Urine 1.019 (1.002-1.036); WBC/HPF Greater than 50 HPF (0-3); pH, Urine 5.5 (5.0-9.0)
[2023-12-29 19:32] LABS: Urine Culture Reflex Yes Yes
[2023-12-29 19:47] LABS: #Monocytes 1.4 thou/uL (0.11-0.59); #Neutrophils 14.4 thou/uL (1.40-6.50); %Basophils 0.2 % (0.0-1.0); %Eosinophils 0.1 % (0.0-10.0); %Lymphocytes 8.2 % (21.0-51.0); %Monocytes 7.8 % (0.0-10.0); %Neutrophils 83.2 % (42.0-75.0); Hematocrit 41.9 % (36.0-47.0); Hemoglobin 13.8 g/dL (12.0-16.0); Mean Corpuscular HGB CONC 32.9 g/dL (32.0-36.0); Mean Corpuscular Hemoglobin 31.6 pg (27.0-31.0); Mean Corpuscular Volume 95.9 fl (78.0-98.0); Mean Platelet Volume 11.2 fL (7.4-10.4); Platelet Count 218 10x3/uL (130-400); RBC Distribution Width 12.8 % (11.5-14.5); Red Blood Cell (RBC) Count 4.37 mill/uL (4.20-5.40); White Blood Cell (WBC) Count 17.3 10x3/uL (4.8-10.8)
[2023-12-29] MEDS ORDERED: Acetaminophen 500 MG TAB ONE (21:03)
[2023-12-29] MEDS ORDERED: cefTRIAXone (ROCEPHIN) 2 GM VIAL ONE (21:03)
[2023-12-29] MEDS ORDERED: Sodium Chloride 0.9% 100 ML ONE (21:03)
[2023-12-29] MEDS ORDERED: Dextrose 50% Abboject 50 ML SYRINGE SLOW IVP PRN (21:40)
[2023-12-29] MEDS ORDERED: Glucagon 1 MG/ML KIT IM PRN (21:40)
[2023-12-29] MEDS ORDERED: Dextrose 5% in Water 1,000 ML IV PRN (21:40)
[2023-12-29] MEDS ORDERED: Senokot S 8.6-50 MG TAB PO PRN (21:40)
[2023-12-29] MEDS ORDERED: Ondansetron ODT 4 MG TAB PO PRN (21:40)
[2023-12-29] MEDS ORDERED: Acetaminophen 650 MG Suppository PR PRN (21:40)
[2023-12-29] MEDS ORDERED: Albuterol 200 PUFF (6.7GM INHALER) INH PRN (21:42)
[2023-12-29] MEDS ORDERED: Mometasone 200 MCG/Formoterol 5 MCG 120 PUFF INHALER INH PRN (21:44)
[2023-12-29 21:51] LABS: ALT (SGPT) 7 U/L (8-55); AST (SGOT) 17 U/L (5-34); Albumin 3.5 g/dL (3.5-5.0); Alkaline Phosphatase 93 U/L (40-110); Anion Gap 17 mmol/L (10-20); BUN (Urea Nitrogen) 12 mg/dL (9.8-20.1); Bilirubin, Total 1.7 mg/dL (0.2-1.2); Calc. Creatinine Clearance 0 mL/min (70-130); Calcium 8.6 mg/dL (7.8-10.44); Carbon Dioxide 22 mmol/L (22-29); Chloride 99 mmol/L (98-107); Estimated GFR 74; Globulin 3.4 g/dL (2.4-3.5); Glucose 212 mg/dL (70-105); Potassium 3.9 mmol/L (3.5-5.1); Protein, Total 6.9 g/dL (6.0-8.3); Sodium 134 mmol/L (136-145)
[2023-12-29 23:16] LABS: Lactic Acid 1.4 mmol/L (0.5-2.2)
[2023-12-29 23:40] VITALS: BMI 49832.6
[2023-12-30] MEDS: Acetaminophen 325 MG TAB PO PRN (00:45)
[2023-12-30] MEDS: Apixaban 5 MG TAB PO SCH (00:45)
[2023-12-30 04:51] LABS: #Monocytes 0.4 thou/uL (0.11-0.59); #Neutrophils 12.9 thou/uL (1.40-6.50); %Basophils 0.2 % (0.0-1.0); %Eosinophils 0.2 % (0.0-10.0); %Lymphocytes 7.7 % (21.0-51.0); %Monocytes 2.6 % (0.0-10.0); Hematocrit 41.6 % (36.0-47.0); Hemoglobin 13.1 g/dL (12.0-16.0); Mean Corpuscular HGB CONC 31.5 g/dL (32.0-36.0); Mean Corpuscular Hemoglobin 30.5 pg (27.0-31.0); Mean Platelet Volume 11.2 fL (7.4-10.4); Platelet Count 189 10x3/uL (130-400); RBC Distribution Width 12.9 % (11.5-14.5); Red Blood Cell (RBC) Count 4.29 mill/uL (4.20-5.40); White Blood Cell (WBC) Count 14.5 10x3/uL (4.8-10.8)
[2023-12-30 05:11] LABS: Anion Gap 19 mmol/L (10-20); BUN (Urea Nitrogen) 11 mg/dL (9.8-20.1); Calc. Creatinine Clearance 151 mL/min (70-130); Calcium 8.9 mg/dL (7.8-10.44); Carbon Dioxide 23 mmol/L (22-29); Chloride 100 mmol/L (98-107); Estimated GFR 86; Glucose 161 mg/dL (70-105); Potassium 3.5 mmol/L (3.5-5.1); Sodium 138 mmol/L (136-145)
[2023-12-30] MEDS: Ketorolac Tromethamine 30 MG (1 mL) VIAL IVP SCH (06:13)
[2023-12-30] MEDS: Ondansetron PF 4 MG/2 ML Vial IVP PRN (06:13)
[2023-12-30] MEDS: tiZANidine HCl 4 MG TAB PO PRN (06:14)
[2023-12-30] MEDS: Montelukast Sodium 10 mg Tablet PO SCH (09:23)
[2023-12-30] MEDS ORDERED: Fioricet 325/50/40 mg Tablet PO PRN (10:28)
[2023-12-30] MEDS: Ipratropium/Albuterol 3 ML NEB NEB PRN (19:26)
[2023-12-30] MEDS: metFORMIN 500 MG TAB PO SCH (21:02)
[2023-12-30] MEDS: Pregabalin 50 MG CAP PO SCH (21:04)
[2023-12-30] MEDS: tiZANidine HCl 4 MG TAB PO SCH (21:04)
[2023-12-30] MEDS: cefTRIAXone\\ROCEPHIN 2 GM in Sodium Chloride 0.9% 100 ML IVPB SCH (21:05)
[2023-12-30] MEDS: HumaLOG 300 UNITS/3 ML VIAL SC PRN (21:18)
[2023-12-31] MEDS: HumaLOG 300 UNITS/3 ML VIAL SC PRN (05:19)
[2023-12-31 06:49] LABS: #Eosinphils 0.1 thou/uL (0.0-0.7); %Basophils 0.3 % (0.0-1.0); %Eosinophils 0.6 % (0.0-10.0); %Lymphocytes 10.4 % (21.0-51.0); %Monocytes 8.5 % (0.0-10.0); %Neutrophils 79.8 % (42.0-75.0); Hematocrit 38.3 % (36.0-47.0); Hemoglobin 12.1 g/dL (12.0-16.0); Mean Corpuscular HGB CONC 31.6 g/dL (32.0-36.0); Mean Corpuscular Hemoglobin 30.4 pg (27.0-31.0); Mean Corpuscular Volume 96.2 fl (78.0-98.0); Platelet Count 186 10x3/uL (130-400); RBC Distribution Width 13.1 % (11.5-14.5); Red Blood Cell (RBC) Count 3.98 mill/uL (4.20-5.40); White Blood Cell (WBC) Count 11.3 10x3/uL (4.8-10.8)
[2023-12-31 07:24] LABS: Anion Gap 15 mmol/L (10-20); BUN (Urea Nitrogen) 10 mg/dL (9.8-20.1); Calc. Creatinine Clearance 161 mL/min (70-130); Calcium 8.1 mg/dL (7.8-10.44); Carbon Dioxide 24 mmol/L (22-29); Chloride 100 mmol/L (98-107); Estimated GFR 93; Glucose 199 mg/dL (70-105); Potassium 3.2 mmol/L (3.5-5.1); Sodium 136 mmol/L (136-145)
[2023-12-31] MEDS: DULoxetine 30 MG CAP PO SCH (09:53)
[2023-12-31] MEDS: Potassium Chloride 20 MEQ TAB PO SCH (09:53)
[2023-12-31] MEDS: Acetaminophen 500 MG TAB PO SCH (20:58)
[2023-12-31] MEDS ORDERED: Pregabalin 50 MG CAP PO SCH (21:00)
[2023-12-31] MEDS: Ciprofloxacin 500 MG TAB PO SCH (22:41)
[2024-01-01] MEDS: Ciprofloxacin 500 MG TAB PO SCH (05:19)
[2024-01-01 07:03] LABS: #Eosinphils 0.1 thou/uL (0.0-0.7); #Monocytes 0.8 thou/uL (0.11-0.59); #Neutrophils 6.4 thou/uL (1.40-6.50); %Basophils 0.3 % (0.0-1.0); %Eosinophils 1.3 % (0.0-10.0); %Lymphocytes 16.1 % (21.0-51.0); %Monocytes 8.8 % (0.0-10.0); %Neutrophils 73.2 % (42.0-75.0); Hematocrit 43.7 % (36.0-47.0); Hemoglobin 13.9 g/dL (12.0-16.0); Mean Corpuscular HGB CONC 31.8 g/dL (32.0-36.0); Mean Corpuscular Hemoglobin 30.8 pg (27.0-31.0); Mean Corpuscular Volume 96.9 fl (78.0-98.0); Mean Platelet Volume 10.9 fL (7.4-10.4); Platelet Count 199 10x3/uL (130-400); RBC Distribution Width 13.1 % (11.5-14.5); Red Blood Cell (RBC) Count 4.51 mill/uL (4.20-5.40); White Blood Cell (WBC) Count 8.8 10x3/uL (4.8-10.8)
[2024-01-01 07:26] LABS: Anion Gap 16 mmol/L (10-20); BUN (Urea Nitrogen) 9 mg/dL (9.8-20.1); Calc. Creatinine Clearance 163 mL/min (70-130); Calcium 9.3 mg/dL (7.8-10.44); Carbon Dioxide 25 mmol/L (22-29); Chloride 100 mmol/L (98-107); Estimated GFR 95; Glucose 155 mg/dL (70-105); Potassium 4.2 mmol/L (3.5-5.1); Sodium 137 mmol/L (136-145)
[2024-01-01 15:36] VITALS: BP 131/63; TEMP 97.6
== END 2024-01-01 16:30 | disposition home or self-care (01) | DRG 872 ==
LOC: ERS 18:37 → 2NO 21:10
PROVIDERS: ADMIT Student in an Organized Health Care Education/Training Program; ATTEND Hospitalist
DX: A41.51 Sepsis due to Escherichia coli [E. coli] (principal); N39.0 Urinary tract infection, site not specified; N12 Tubulo-interstitial nephritis, not specified as acute or chronic; I50.32 Chronic diastolic (congestive) heart failure; Z88.8 Allergy status to other drugs, medicaments and biological substances; J44.9 Chronic obstructive pulmonary disease, unspecified; E11.9 Type 2 diabetes mellitus without complications; I10 Essential (primary) hypertension; E78.5 Hyperlipidemia, unspecified; Z98.51 Tubal ligation status; Z90.49 Acquired absence of other specified parts of digestive tract; Z90.89 Acquired absence of other organs
CPT/HCPCS: 36415; 36416; 74177; 80048; 80053; 81001; 83605; 85025; 87040; 87077; 87086; 87186; 94640; 96374; J0696; J1815; J1885; J2405; J3490; J7620; Q9967

== ENCOUNTER 2024-07-26 18:33 | Emergency (ER) | payer SELFPAY ==
[2024-07-26 20:45] LABS: #Basophils 0.04 10x3/uL (0.0-0.2); %Basophils 0.4 % (0.0-1.0); %Eosinophils 1.1 % (0.0-10.0); %Lymphocytes 25.5 % (21.0-51.0); %Monocytes 5.8 % (0.0-10.0); %Neutrophils 66.9 % (42.0-75.0); Hematocrit 38.1 % (36.0-47.0); Hemoglobin 12.5 g/dL (12.0-16.0); Mean Corpuscular HGB CONC 32.8 g/dL (32.0-36.0); Mean Corpuscular Hemoglobin 31.3 pg (27.0-31.0); Mean Corpuscular Volume 95.5 fL (78.0-98.0); Mean Platelet Volume 10.5 fL (7.4-10.4); Platelet Count 246 10x3/uL (130-400); RBC Distribution Width 12.7 % (11.5-14.5); Red Blood Cell (RBC) Count 3.99 mill/uL (4.20-5.40)
[2024-07-26 21:04] LABS: Anion Gap 16 mmol/L (10-20); BUN (Urea Nitrogen) 10 mg/dL (9.8-20.1); Calc. Creatinine Clearance 0 mL/min (70-130); Carbon Dioxide 24 mmol/L (22-29); Chloride 107 mmol/L (98-107); Potassium 3.8 mmol/L (3.5-5.1); Sodium 143 mmol/L (136-145)
[2024-07-26 21:05] LABS: ALT (SGPT) 9 U/L (8-55); AST (SGOT) 15 U/L (5-34); Albumin 3.4 g/dL (3.5-5.0); Alkaline Phosphatase 96 U/L (40-110); Bilirubin, Total 0.2 mg/dL (0.2-1.2); Calcium 8.9 mg/dL (7.8-10.44); Estimated GFR 94; Globulin 3.1 g/dL (2.4-3.5); Glucose 146 mg/dL (70-105); Protein, Total 6.5 g/dL (6.0-8.3)
[2024-07-26] MEDS ORDERED: Ketorolac Tromethamine 30 MG (1 mL) VIAL ONE (21:50)
[2024-07-26 22:14] LABS: Bilirubin Negative (Negative); Blood, Urine Negative (Negative); CAUTI Indications for Culture Dysuria,urgency,freq; Clarity Clear (Clear); Glucose, Urine (Dipstick) Normal (Negative); Ketone, Urine Negative (Negative); Leukocyte Negative Leu/uL (Negative); Nitrite Negative (Negative); Protein, Urine (Dipstick) Negative (Neg-Trace); Specific Gravity, Urine 1.023 (1.002-1.036); WBC/HPF 0-3 HPF (0-3); pH, Urine 5.5 (5.0-9.0)
[2024-07-26 22:15] LABS: Bacteria/HPF Rare-Few HPF (None Seen); Urine Culture Reflex No No
[2024-07-26 23:47] LABS: Lactic Acid 1.58 mmol/L (0.5-2.2)
== END 2024-07-27 | disposition home or self-care (01) ==
LOC: ERS 18:33
DX: M54.6 Pain in thoracic spine (principal); J44.9 Chronic obstructive pulmonary disease, unspecified; E11.9 Type 2 diabetes mellitus without complications; Z55.6 Problems related to health literacy
CPT/HCPCS: 36415; 36416; 71275; 74177; 80053; 81001; 83605; 85025; 96374; J1885; Q9967

== ENCOUNTER 2024-11-04 22:25 | Emergency (ER) | payer SELFPAY ==
[2024-11-05 00:56] LABS: Bacteria/HPF None Seen HPF (None Seen); Bilirubin Negative (Negative); Blood, Urine Negative (Negative); CAUTI Indications for Culture Fever or rigors; Clarity Clear (Clear); Glucose, Urine (Dipstick) Normal (Negative); Ketone, Urine Trace mg/dL (Negative); Leukocyte Negative Leu/uL (Negative); Nitrite Negative (Negative); Protein, Urine (Dipstick) 20 mg/dL (Neg-Trace); RBC/HPF 0-3 HPF (0-3); Specific Gravity, Urine 1.026 (1.002-1.036); WBC/HPF 0-3 HPF (0-3)
[2024-11-05 00:57] LABS: Urine Culture Reflex No No
[2024-11-05 02:11] LABS: #Basophils 0.03 10x3/uL (0.0-0.2); #Eosinophils Less than 0.03 10x3/uL (0.0-0.7); %Basophils 0.3 % (0.0-1.0); %Eosinophils 0.2 % (0.0-10.0); %Lymphocytes 13.3 % (21.0-51.0); %Monocytes 10.3 % (0.0-10.0); %Neutrophils 75.5 % (42.0-75.0); Hematocrit 37.8 % (36.0-47.0); Hemoglobin 12.7 g/dL (12.0-16.0); Mean Corpuscular HGB CONC 33.6 g/dL (32.0-36.0); Mean Corpuscular Hemoglobin 30.9 pg (27.0-31.0); Platelet Count 228 10x3/uL (130-400); Red Blood Cell (RBC) Count 4.11 mill/uL (4.20-5.40)
[2024-11-05 02:27] LABS: ALT (SGPT) 12 U/L (8-55); AST (SGOT) 19 U/L (5-34); Albumin 3.5 g/dL (3.5-5.0); Alkaline Phosphatase 94 U/L (40-110); Anion Gap 16 mmol/L (10-20); BUN (Urea Nitrogen) 10 mg/dL (9.8-20.1); Bilirubin, Total 0.4 mg/dL (0.2-1.2); Calc. Creatinine Clearance 0 mL/min (70-130); Calcium 8.8 mg/dL (7.8-10.44); Carbon Dioxide 24 mmol/L (22-29); Chloride 99 mmol/L (98-107); Estimated GFR 100; Globulin 3.7 g/dL (2.4-3.5); Glucose 148 mg/dL (70-105); Lipase 38 U/L (8-78); Magnesium 1.2 mg/dL (1.6-2.6); Potassium 3.6 mmol/L (3.5-5.1); Protein, Total 7.2 g/dL (6.0-8.3); Sodium 135 mmol/L (136-145)
[2024-11-05 02:29] LABS: Troponin I Less than 0.010 ng/mL (< 0.028)
[2024-11-05] MEDS ORDERED: Magnesium 2 GM/50 ML BAG (IN WATER) ONE (04:06)
[2024-11-05] MEDS ORDERED: Ketorolac Tromethamine 30 MG (1 mL) VIAL ONE (05:56)
[2024-11-05] MEDS ORDERED: Iopamidol-370 76% 500 ML MDV (1 ML CHARGE) ONE (11:04)
== END 2024-11-05 06:05 | disposition home or self-care (01) ==
LOC: ERS 22:25
DX: U07.1 COVID-19 (principal); J45.909 Unspecified asthma, uncomplicated; J44.9 Chronic obstructive pulmonary disease, unspecified; Z79.51 Long term (current) use of inhaled steroids; E11.9 Type 2 diabetes mellitus without complications
CPT/HCPCS: 71045; 71275; 80053; 81001; 83605; 83690; 83735; 83880; 84484; 85025; 87428; 93005; 96365; 96375; J1885; J3475